=== PATIENT | female | born 1955 | race Caucasian/White ===

== ENCOUNTER 2016-12-25 08:57 | Emergency (ER) | payer BC, MEDICARE ==
[2016-12-25] MEDS ORDERED: ONDANSETRON 4 MG TAB.RAPDIS PO ONE (09:13)
[2016-12-25] MEDS ORDERED: OXYCODONE-ACETAMINOPHEN 5-325 MG TABLET PO ONE (09:13)
[2016-12-25] MEDS ORDERED: IBUPROFEN 600 MG TABLET PO ONE (09:13)
--- NOTE | 2016-12-25 09:18 | ER Document Report ---
ED Medical Screen (RME) - General Chief Complaint: Possible Kidney Stone Stated Complaint: LOWER BACK PAIN Time Seen by Provider: 12/25/16 09:13 Notes: The patient is a 61-year-old female, past medical history kidney stones, Lyme disease, presents with 2 days of bilateral flank pain, worse on the right side now radiating into her groin, nausea and vomiting. She says this feels similar to her prior kidney stones. She required ureteral stents in the past. Patient also with fever on arrival to triage. Denies hematuria, dysuria, numbness, tingling, hematemesis, diarrhea or constipation. PE: actively vomiting in triage, right CVA tenderness, RRR, CTAB, abdomen soft and non-tender I have greeted and performed a rapid initial assessment of this patient. A comprehensive ED assessment and evaluation of the patient, analysis of test results and completion of the medical decision making process will be conducted by additional ED providers. TRAVEL OUTSIDE OF THE [place] IN LAST 30 DAYS: No - Related Data Allergies/Adverse Reactions: Sulfa (Sulfonamide Antibiotics) Allergy (Intermediate, Verified 12/25/16 09:10) Hives Past Medical History - Past Medical History Cardiac Medical History: Denies: Hx Coronary Artery Disease, Hx Heart Attack, Hx Hypertension Pulmonary Medical History: Denies: Hx Asthma, Hx Bronchitis, Hx COPD, Hx Pneumonia Neurological Medical History: Denies: Hx Cerebrovascular Accident, Hx Seizures Renal/ Medical History: Denies: Hx Peritoneal Dialysis Musculoskeltal Medical History: Denies Hx Arthritis - Immunizations Hx Diphtheria, Pertussis, Tetanus Vaccination: Yes Physical Exam - Vital signs Vitals: Temp Pulse Resp BP Pulse Ox 102 F H 80 20 138/120 H 99 12/25/16 09:07 12/25/16 09:07 12/25/16 09:07 12/25/16 09:07 12/25/16 09:07 Course - Vital Signs Vital signs: Temp Pulse Resp BP Pulse Ox 102 F H 80 20 138/120 H 99 12/25/16 09:07 12/25/16 09:07 12/25/16 09:07 12/25/16 09:07 12/25/16 09:07
[2016-12-25 09:37] LABS: ABSOLUTE LYMPHOCYTES (AUTO) 0.6 10^3/uL (0.5-4.7); ABSOLUTE MONOCYTES (AUTO) 0.2 10^3/uL (0.1-1.4); ABSOLUTE NEUT (AUTO) 9.8 10^3/uL (1.7-8.2); BASOPHILS % (AUTO) 0.4 % (0-2); EOSINOPHILS % (AUTO) 0.3 % (0-6); HEMATOCRIT 30.3 % (36.0-47.0); HEMOGLOBIN 10.1 g/dL (12.0-15.5); LYMPHOCYTES % (AUTO) 5.5 % (13-45); MEAN CORPUSCULAR HEMOGLOBIN 29.4 pg (27.0-33.4); MEAN CORPUSCULAR HGB CONC 33.2 g/dL (32.0-36.0); MEAN CORPUSCULAR VOLUME 89 fl (80-97); MONOCYTES % (AUTO) 1.6 % (3-13); RED BLOOD COUNT 3.42 10^6/uL (3.72-5.28); RED CELL DISTRIBUTION WIDTH 12.9 % (11.5-14.0); SEGMENTED NEUTROPHILS % (AUTO) 92.2 % (42-78); WHITE BLOOD COUNT 10.7 10^3/uL (4.0-10.5)
[2016-12-25 09:59] LABS: ALANINE AMINOTRANSFERASE 28 U/L (9-52); ALKALINE PHOSPHATASE 83 U/L (38-126); ANION GAP 16 (5-19); ASPARTATE AMINO TRANSFERASE 27 U/L (14-36); BILIRUBIN,DIRECT 0.6 mg/dL (0.0-0.4); BILIRUBIN,TOTAL 0.8 mg/dL (0.2-1.3); BLOOD UREA NITROGEN 14 mg/dL (7-20); CALCIUM 9.3 mg/dL (8.4-10.2); CARBON DIOXIDE 22 mmol/L (22-30); CHLORIDE 102 mmol/L (98-107); CREATININE RESULT 1.31 mg/dL (0.52-1.25); GLUCOSE 141 mg/dL (75-110); LIPASE 17.8 U/L (23-300); POTASSIUM 3.9 mmol/L (3.6-5.0); SODIUM 139.6 mmol/L (137-145); TOTAL PROTEIN 7.1 g/dL (6.3-8.2)
[2016-12-25] MEDS ORDERED: NORMAL SALINE 1000 ML 1,000 ML IV ONE (10:04)
[2016-12-25] MEDS ORDERED: VANCOMYCIN HCL INJ 1000 MG VIAL IV ONE (10:04)
[2016-12-25] MEDS ORDERED: LEVOFLOXACIN 750 MG TABLET PO ONE (10:04)
--- NOTE | 2016-12-25 10:22 | RADIOLOGY REPORT (SQ) ---
EXAM DESCRIPTION: CT ABD/PELVIS NO ORAL OR IV COMPLETED DATE/TIME: 12/25/2016 9:43 am REASON FOR STUDY: right flank pain COMPARISON: None. TECHNIQUE: CT scan of the abdomen and pelvis performed without intravenous or oral contrast. Images reviewed with lung, soft tissue, and bone windows. Reconstructed coronal and sagittal MPR images revi ewed. All images stored on PACS. All CT scanners at this facility use dose modulation, iterative reconstruction, and/or weight based d osing when appropriate to reduce radiation dose to as low as reasonably achievable (ALARA). [facility]: Dose Right [facility]: CareDose [facility]: Dose Right [facility]: Teradose 4D [facility]: [employer] RADIATION DOSE: Up-to-date CT equipment and radiation dose reduction techniques were employed. CTDIv ol: 7.4 mGy. DLP: 392 mGy-cm.mGy. LIMITATIONS: None. FINDINGS: LOWER CHEST: No significant findings. No nodules or infiltrates. NON-CONTRASTED LIVER, SPLEEN, ADRENALS: The liver and spleen are normal. The adrenal glands are not well seen. PANCREAS: No masses. No peripancreatic inflammatory changes. GALLBLADDER: No identified stones by CT criteria. No inflammatory changes to suggest cholecystitis. RIGHT KIDNEY AND URETER: No suspicious masses. Assessment limited by lack of IV contrast. There is an 8 mm lower calyceal calculus. There is right-sided hydronephrosis secondary to the presence of a 13 x 10 mm stone at the UPJ. LEFT KIDNEY AND URETER: The left kidney smaller than the right. There is no mass. Staghorn calculu s is present in the lower calices. No hydronephrosis or hydroureter. AORTA AND RETROPERITONEUM: No aneurysm. No retroperitoneal masses or adenopathy. BOWEL AND PERITONEAL CAVITY: Considerable stool is seen in the left colon. APPENDIX: Not identified. PELVIS, BLADDER, AND ABDOMINAL WALL:The urinary bladder is normal. There is no adnexal mass or fluid collection. BONES: No significant findings. OTHER: No other significant finding. IMPRESSION: 1. There is right-sided hydronephrosis secondary to a 13 x 10 mm stone at the UPJ. 2. The left kidney is smaller than the right and there is a staghorn calculus in the lower calices. 3. There is considerable stool in the left colon suggesting constipation. TECHNICAL DOCUMENTATION: JOB ID: [id number] Quality ID # [id number]: Final reports with documentation of one or more dose reduction techniques (e.g., Au tomated exposure control, adjustment of the mA and/or kV according to patient size, use of iterative reconstruction technique) 2010 [employer]- All Rights Reserved
--- NOTE | 2016-12-25 10:30 | ER Document Report ---
ED General - General Chief Complaint: Possible Kidney Stone Stated Complaint: LOWER BACK PAIN Time Seen by Provider: 12/25/16 09:13 Notes: 61-year-old female with a history of kidney stones with intervention several years ago presents with several days of right flank pain worsening severe now associated with fever 24 hours and vomiting. Denies diarrhea. Her urologist is not practicing anymore. TRAVEL OUTSIDE OF THE [place] IN LAST 30 DAYS: No - Related Data Allergies/Adverse Reactions: Sulfa (Sulfonamide Antibiotics) Allergy (Intermediate, Verified 12/25/16 09:10) Hives Past Medical History - Social History Smoking Status: Unknown if Ever Smoked Family History: None Patient has suicidal ideation: No Patient has homicidal ideation: No - Past Medical History Cardiac Medical History: Denies: Hx Coronary Artery Disease, Hx Heart Attack, Hx Hypertension Pulmonary Medical History: Denies: Hx Asthma, Hx Bronchitis, Hx COPD, Hx Pneumonia Neurological Medical History: Denies: Hx Cerebrovascular Accident, Hx Seizures Renal/ Medical History: Denies: Hx Peritoneal Dialysis Musculoskeltal Medical History: Denies Hx Arthritis - Immunizations Hx Diphtheria, Pertussis, Tetanus Vaccination: Yes Review of Systems - Review of Systems Notes: GEN: D there are ENT: Denies sore throat, nasal discharge, ear pain EYES: Denies blurry vision, eye pain, discharge CV: Denies chest pain, palpitations, edema RESP: Denies cough, shortness of breath, wheezing GI: Flank pain vomiting MSK: Denies joint pain/swelling, edema, SKIN: Denies rash, skin lesions LYMPH: Denies swollen glands/lymph nodes NEURO: Denies headache, focal weakness or numbness, dizziness PSYCH: Denies depression, suicidal or homicidal ideation Physical Exam - Vital signs Vitals: Temp Pulse Resp BP Pulse Ox 102 F H 80 20 138/120 H 99 12/25/16 09:07 12/25/16 09:07 12/25/16 09:07 12/25/16 09:07 12/25/16 09:07 - Notes Notes: General: No acute distress, well-nourished. Warm to the touch. Head: Atraumatic, normocephalic ENT: Mouth normal, oropharynx moist, no exudates or tonsillar enlargement Eyes: Conjunctiva normal, pupils equal, lids normal Neck: No JVD, supple, no guarding CVS: Cardiac regular rhythm, no murmurs Resp: No resp distress, equal and normal breath sounds bilaterally GI: Nondistended, soft, no tenderness to palpation, no rebound or guarding Ext: No deformities, no edema, normal range of motion in upper and lower ext : Right-sided greater than left-sided costovertebral angle tenderness Skin: No rash, warm Lymphatic: No lymphadeopathy noted Neuro: Awake, alert. Face symmetric. Course - Re-evaluation Re-evalutation: 12/25/16 10:34 Spoke with transfer center environment at 10:33 AM. Requested urology. Patient 's lab results show a leukocytosis and her CT is being read as an obstructing right sided ureteropelvic junction stone with hydronephrosis. This combined with her fever is worrisome for an impacted stone, with pyelonephritis requiring urgent urological intervention. Antibiotics ordered. Will transfer. 12/25/16 11:[address] Cuevas from urology at [facility] who agrees patient should be transferred for urologic intervention but states that they do not accept septic patients on their service and we should try hospitalist first. Requested this via the transfer center. 12/25/16 11:48 S, vitals have improved. Patient is accepted by Dr. Joshua Ott at [facility] Previously spoke with Dr. Cuevas who will arrange cystoscopy. - Vital Signs Vital signs: Temp Pulse Resp BP Pulse Ox 102.0 F H 80 18 115/92 H 95 12/25/16 11:10 12/25/16 09:07 12/25/16 11:07 12/25/16 11:07 12/25/16 11:07 - Laboratory Result Diagrams: 12/25/16 09:23 12/25/16 09:23 Laboratory results interpreted by me: 12/25/16 12/25/16 12/25/16 09:23 09:23 10:25 WBC 10.7 H RBC 3.42 L Hgb 10.1 L Hct 30.3 L Seg Neutrophils % 92.2 H Lymphocytes % 5.5 L Monocytes % 1.6 L Absolute Neutrophils 9.8 H Creatinine 1.31 H Est GFR ( Amer) 50 L Est GFR (Non-Af Amer) 41 L Glucose 141 H Lactic Acid 2.3 H Direct Bilirubin 0.6 H Lipase 17.8 L Urine Blood Urine Nitrite Ur Leukocyte Esterase 12/25/16 11:02 WBC RBC Hgb Hct Seg Neutrophils % Lymphocytes % Monocytes % Absolute Neutrophils Creatinine Est GFR ( Amer) Est GFR (Non-Af Amer) Glucose Lactic Acid Direct Bilirubin Lipase Urine Blood SMALL H Urine Nitrite POSITIVE H Ur Leukocyte Esterase MODERATE H Critical Care Note - Critical Care Note Total time excluding time spent on procedures (mins): 35 Comments: The above patient is critically ill. Not including procedures, but including direct re-evaluations, speaking with patient and/or consultants, interpreting results, and documenting, I spent the total amount of minute listed listed above on critical care time
[2016-12-25] MEDS ORDERED: NORMAL SALINE 1000 ML 1,000 ML IV PRN (11:06)
[2016-12-25] MEDS ORDERED: ACETAMINOPHEN 325 MG TABLET PO ONE (11:15)
[2016-12-25 11:29] LABS: APPEARANCE,URINE SLIGHTLY-CLOUDY; BILIRUBIN,URINE NEGATIVE (NEGATIVE); GLUCOSE, URINE NEGATIVE (NEGATIVE); KETONES,URINE NEGATIVE (NEGATIVE); LEUKOCYTE ESTERASE,URINE MODERATE (NEGATIVE); NITRITE,URINE POSITIVE (NEGATIVE); PROTEIN,URINE NEGATIVE (NEGATIVE); URINE SPECIFIC GRAVITY 1.008; UROBILINOGEN,URINE NEGATIVE mg/dL (<2.0)
[2016-12-25] MEDS ORDERED: FENTANYL CITRATE INJ/PF 100 MCG/2 ML AMPUL IV ONE (13:14)
[2016-12-25 14:30] VITALS: BP 111/73
== END 2016-12-25 15:07 | disposition short-term general hospital (02) ==
LOC: ER 08:57
DX: N10 Acute pyelonephritis (principal); M54.5 Low back pain; R50.9 Fever, unspecified
CPT/HCPCS: 99291; 96361; 96375; 96365; 36415; 87040; 87086; 83605; 83690; 85025; 87077; 87088; 80053; 81001; 87186; 74176; A9270 ×5; J3010; J7030; J3370; S0119

== ENCOUNTER 2017-09-16 08:27 | Day surgery (SDC) | payer MEDICARE, BC ==
[~2017-09-16 08:27] MED LIST: CHONDR SU A NA/HYALUR INTRAOC KIT (SURGICARE) ONE; EPINEPHRINE INJ/PF 1 MG/1 ML AMPULE ONE; KETOROLAC TROMETHAMINE 0.45% 4 DROP/0.4 ML DROPERETTE OS PRN; LIDOCAINE 1% INJ-PF (10 MG/ML) 30 ML SDV ONE
[2017-09-16] MEDS ORDERED: MIDAZOLAM 2 MG/2 ML INJ ONE ×2 (09:14→10:36)
[2017-09-16] MEDS: TETRACAINE HCL 0.5% OPH SOLN 2 ML OS PRN ×3 (09:37→10:11)
[2017-09-16] MEDS: TROPICAMIDE 1% OPH SOLN 3 ML OS PRN ×3 (09:38→10:00)
[2017-09-16] MEDS: CYCLOPENTOLATE 0.2%/PHENYLEPHRINE 1% OPH SOLN 2 ML OS PRN ×3 (09:38→10:00)
[2017-09-16] MEDS: BESIFLOXACIN HCL 0.6% OPH SUSP 5 ML BOTTLE OS PRN ×3 (09:38→10:31)
--- NOTE | 2017-09-16 13:44 | [facility] OPERATIVE REPORT E ---
[facility] Operative Report NAME: ADELAIDA SIMON AGE: 62Y DATE OF SURGERY: 09/16/2017 ROOM: PREOPERATIVE DIAGNOSIS: CATARACT, LEFT EYE. POSTOPERATIVE DIAGNOSIS: CATARACT, LEFT EYE. OPERATION: Cataract extraction with intraocular lens implant of the left eye. SURGEON: KATHY LINDER M.D. ANESTHESIA: Topical. PROCEDURE: After obtaining appropriate consent, the patient's left eye was prepped and draped in sterile fashion as well as the surgeon in a sterile manner and cataract surgery was started. First a paracentesis blade was used to make a small side-port incision. Viscoelastic was used to inflate the anterior chamber. Next a 2.4 mm incision was made with the paracentesis blade. A continuous capsulorrhexis incision was made using a cystotome and Utrata forceps. Following this hydrodissection was carried out to make the lens fully loose and mobile and it was rotated 90 degrees. Following this, a kstwab-hla-lgenhjb technique was used to phacoemulsify the lens with a CDE of 7.07. The remaining cortex was removed with irrigation/aspiration. Provisc was instilled into the capsular bag to inflate the bag. A SN60WF, 13.5 diopter lens was placed. The remaining viscoelastic material was removed with irrigation/aspiration. Following this, a 10-0 nylon suture was used to close the incision and it was found to be watertight. Vigamox was instilled in the eye and a protective shield was placed over the eye. The patient returned to the postoperative recovery in stable condition. DICTATING PHYSICIAN: KATHY LINDER M.D. [id number] PHY#: [id number] ID: [id number] JOB#: [id number] ACCT: [id number] cc:KATHY LINDER M.D. >
--- NOTE | 2017-09-16 13:44 | [facility] DISCHARGE SUMMARY E ---
[facility] Discharge Summary NAME: ADELAIDA SIMON AGE: 62Y ADMITTED: 09/16/2017 DISCHARGED: 09/16/2017 DIAGNOSIS: CATARACT, LEFT EYE. SUMMARY: This is a 62-year-old female who underwent cataract extraction of the left eye. She underwent surgery because she was having trouble seeing words on the television. She should be on a regular diet, no bending at her waist, and no heavy lifting. She should use her Besivance, Ilevro and Durezol at 3 p.m. and 8 p.m. and sleep with a rigid shield. I will see her for her 1 day postoperative tomorrow. DICTATING PHYSICIAN: KATHY LINDER M.D. [id number] PHY#: [id number] ID: [id number] JOB#: [id number] ACCT: [id number] cc:KATHY LINDER M.D. >
== END 2017-09-16 11:30 | disposition home or self-care (01) ==
LOC: SC 08:27
PROVIDERS: ATTEND Internal Medicine
PROC: 08RK3JZ Replacement of Left Lens with Synthetic Substitute, Percutaneous Approach (ICD-10-PCS; principal; 2017-09-16 10:00)
DX: H25.13 Age-related nuclear cataract, bilateral (principal); D64.9 Anemia, unspecified; F17.290 Nicotine dependence, other tobacco product, uncomplicated; Z88.2 Allergy status to sulfonamides
CPT/HCPCS: 66984; V2632; J2250; J3490 ×2; A9270; J0171; 142

== ENCOUNTER → 2020-01-25 | Outpatient (CLI) | payer MEDICARE, BC ==
--- NOTE | 2020-01-26 08:39 | EKG REPORT ---
SEVERITY:- BORDERLINE ECG - SINUS RHYTHM BORDERLINE PROLONGED QT INTERVAL : Confirmed by: Vee Figueroa MD 26-Jan-2020 08:38:44
== END ==
LOC: OD 11:30
PROVIDERS: ATTEND Pain Medicine Interventional Pain Medicine
DX: G89.4 Chronic pain syndrome (principal)
CPT/HCPCS: 36415; G0480; 80358; 93005; 93010

== ENCOUNTER → 2020-02-22 | Outpatient (CLI) | payer MEDICARE, BC | LOC: OD 12:25 | PROVIDERS: ATTEND Pain Medicine Interventional Pain Medicine | DX: G89.4 Chronic pain syndrome (principal) | CPT/HCPCS: 36415; G0480; 80358 ==

== ENCOUNTER 2020-03-22 20:41 | Inpatient (IN) | payer MEDICARE, BC ==
[2020-03-22 21:10] LABS: ABSOLUTE BASOPHILS # (AUTO) 0.1 10^3/uL (0.0-0.2); ABSOLUTE EOSINOPHILS # (AUTO) 0.3 10^3/uL (0.0-0.6); ABSOLUTE LYMPHOCYTES (AUTO) 1.3 10^3/uL (0.5-4.7); ABSOLUTE MONOCYTES (AUTO) 1.6 10^3/uL (0.1-1.4); ABSOLUTE NEUT (AUTO) 14.5 10^3/uL (1.7-8.2); BASOPHILS % (AUTO) 0.5 % (0-2); EOSINOPHILS % (AUTO) 1.5 % (0-6); HEMATOCRIT 31.8 % (36.0-47.0); HEMOGLOBIN 10.7 g/dL (12.0-15.5); LYMPHOCYTES % (AUTO) 7.1 % (13-45); MEAN CORPUSCULAR HEMOGLOBIN 28.5 pg (27.0-33.4); MEAN CORPUSCULAR HGB CONC 33.7 g/dL (32.0-36.0); MEAN CORPUSCULAR VOLUME 85 fl (80-97); MONOCYTES % (AUTO) 9.2 % (3-13); PLATELET COUNT 465 10^3/uL (150-450); RED BLOOD COUNT 3.76 10^6/uL (3.72-5.28); RED CELL DISTRIBUTION WIDTH 13.4 % (11.5-14.0); SEGMENTED NEUTROPHILS % (AUTO) 81.7 % (42-78); TOTAL CELLS COUNTED % (AUTO) 100 %; WHITE BLOOD COUNT 17.8 10^3/uL (4.0-10.5)
[2020-03-22 21:22] LABS: ALBUMIN 3.7 g/dL (3.5-5.0); ALKALINE PHOSPHATASE 201 U/L (38-126); ANION GAP 11 (5-19); ASPARTATE AMINO TRANSFERASE 36 U/L (14-36); BILIRUBIN,DIRECT 0.5 mg/dL (0.0-0.4); BILIRUBIN,TOTAL 0.7 mg/dL (0.2-1.3); BLOOD UREA NITROGEN 14 mg/dL (7-20); CALCIUM 9.2 mg/dL (8.4-10.2); CARBON DIOXIDE 26 mmol/L (22-30); CHLORIDE 100 mmol/L (98-107); CREATINE KINASE 158 U/L (30-135); GLUCOSE 117 mg/dL (75-110); POTASSIUM 3.7 mmol/L (3.6-5.0); TOTAL PROTEIN 6.9 g/dL (6.3-8.2)
[2020-03-22 21:34] LABS: CREATINE KINASE MB 5.91 ng/mL (<4.55)
[2020-03-22 21:36] LABS: TROPONIN I 0.049 ng/mL
--- NOTE | 2020-03-22 21:43 | ER Document Report ---
ED Respiratory Problem - General Chief Complaint: Shortness Of Breath Stated Complaint: DIFFICULTY BREATHING Time Seen by Provider: 03/22/20 21:06 Notes: Patient is a 65-year-old female that comes emergency department for chief complaint of difficulty breathing. She comes by EMS, she was found to have an initial oxygen saturation of 91% on room air, she was given an albuterol nebulizer. She states that she has had increased difficulty breathing for the past 2 days or so although she does admit to some baseline difficulty breathing normally. She states she has dyspnea on exertion at baseline as well but this is significantly worsened as well. She denies specific chest pain, she does report a worsening cough, she denies fever, she denies nausea, vomiting, headache, lower extremity swelling. She denies obvious exposure to COVID-19 or recent testing. She smokes, she takes a hormone supplement (estrogen), she has a history of rheumatoid arthritis and is on methadone for this, she has a history of depression. She denies COPD diagnosis, CAD, TX, CHF, and she is not on home oxygen. TRAVEL OUTSIDE OF THE [place] IN LAST 30 DAYS: No - Related Data Allergies/Adverse Reactions: Sulfa (Sulfonamide Antibiotics) Allergy (Intermediate, Verified 09/15/17 09:17) Hives Home Medications: Methadone, Estrogen Past Medical History - General Information source: Patient - Social History Smoking Status: Current Every Day Smoker Frequency of alcohol use: None Drug Abuse: None Lives with: Family Family History: None Patient has homicidal ideation: No - Past Medical History Cardiac Medical History: Denies: Hx Coronary Artery Disease, Hx Heart Attack, Hx Hypertension Pulmonary Medical History: Reports: Hx COPD Denies: Hx Asthma, Hx Bronchitis, Hx Pneumonia Neurological Medical History: Denies: Hx Cerebrovascular Accident, Hx Seizures Renal/ Medical History: Reports: Hx Kidney Stones. Denies: Hx Peritoneal Dialysis GI Medical History: Denies: Hx Hepatitis, Hx Hiatal Hernia, Hx Ulcer Musculoskeletal Medical History: Reports Hx Arthritis - rheumatoid Psychiatric Medical History: Reports: Hx Depression Infectious Medical History: Denies: Hx Hepatitis Past Surgical History: Reports: Hx Hysterectomy. Denies: Hx Mastectomy, Hx Open Heart Surgery, Hx Pacemaker - Immunizations Hx Diphtheria, Pertussis, Tetanus Vaccination: Yes Review of Systems - Review of Systems Constitutional: See HPI EENT: No symptoms reported Cardiovascular: See HPI Respiratory: See HPI Gastrointestinal: No symptoms reported Genitourinary: No symptoms reported Female Genitourinary: No symptoms reported Musculoskeletal: No symptoms reported Skin: No symptoms reported Hematologic/Lymphatic: No symptoms reported Neurological/Psychological: No symptoms reported Physical Exam - Vital signs Vitals: Temp Pulse Resp BP Pulse Ox 98.8 F 99 20 138/81 H 96 03/22/20 20:41 03/22/20 20:41 03/22/20 20:41 03/22/20 20:41 03/22/20 20:41 - Notes Notes: GENERAL: Alert but slightly pale and slightly ill-appearing HEAD: Normocephalic, atraumatic. EYES: Pupils equal, round, and reactive to light. Extraocular movements intact. ENT: Oral mucosa moist, tongue midline. Oropharynx unremarkable. Airway patent. NECK: Full range of motion. Supple. Trachea midline. No lymphadenopathy. LUNGS: Decreased breath sounds bilaterally but no tachypnea, labored breathing, wheezes, rales, rhonchi were noted HEART: Regular rate and rhythm. No murmur ABDOMEN: Soft, non-tender. Non-distended. EXTREMITIES: Moves all 4 extremities spontaneously. No edema, normal radial and dorsalis pedis pulses bilaterally. No cyanosis. BACK: no cervical, thoracic, lumbar midline tenderness. No saddle anesthesia, normal distal neurovascular exam. Moves all extremities in full range of motion. NEUROLOGICAL: Alert and oriented x3. Normal speech. Cranial nerves II through XII grossly intact. Strength 5/5 in all extremities. PSYCH: Normal affect, normal mood. SKIN: Slightly pale, otherwise unremarkable Course - Re-evaluation Re-evalutation: Patient is comfortable sitting on the bed on 3 L nasal cannula but with any effort she becomes tachypneic. At rest though she speaks in full sentences, she does not appear to be in distress. Lung sounds are decreased but clear on my evaluation. Physical examination otherwise unremarkable. CBC shows leukocytosis with elevation of neutrophils but no bandemia. Chemistry unremarkable. Troponin is indeterminate, BNP is greater than 2000. Chest x-ray indicates bilateral pneumonia. Based on her evaluation I have a high suspicion of pneumonia, high suspicion of COVID-19, and some suspicion of pulmonary embolism. I discussed with patient. I recommended antibiotics, dexamethasone, and admission to the hospital for further evaluation and management. These were ordered. Doxycycline was substituted for azithromycin because of prolonged QT interval. However patient initially stated she wanted to go home, she would pr efer to just be discharged now, she states that she needs things taken care of at home and she wants to check on her . I urged patient to stay, I discussed how she may become critically ill and she needs to be hospitalized. Patient asked to get up and go to the bathroom, we ambulated her with pulse ox, she desaturated to 87% and started gasping for air rapidly. Patient was placed back on the bed and placed back on oxygen. After this she calmed down. After this event patient was then agreeable with admission. Discussed with Dr. Joshi patient excepted to telemetry full admission. Updated family. - Vital Signs Vital signs: Temp Pulse Resp BP Pulse Ox 98.7 F 93 20 147/64 H 100 03/23/20 03:45 03/23/20 03:45 03/23/20 03:45 03/23/20 03:45 03/23/20 03:45 - Laboratory Result Diagrams: 03/22/20 20:50 03/22/20 20:50 Laboratory results interpreted by me: 03/22/20 03/22/20 03/22/20 20:50 20:50 20:50 WBC 17.8 H Hgb 10.7 L Hct 31.8 L Plt Count 465 H Lymph % (Auto) 7.1 L Absolute Neuts (auto) 14.5 H Absolute Monos (auto) 1.6 H Seg Neutrophils % 81.7 H Sodium 136.7 L Glucose 117 H Direct Bilirubin 0.5 H Alkaline Phosphatase 201 H Creatine Kinase 158 H CK-MB (CK-2) 5.91 H NT-Pro-B Natriuret Pep 2080 H - EKG Interpretation by Me Additional EKG results interpreted by me: EKG shows sinus rhythm at a rate of 94, prolonged QT interval at 526, normal axis, no T wave inversions or ST segment changes in consecutive leads Discharge - Discharge Clinical Impression: Cough, Shortness of breath Pneumonia Qualifiers: Pneumonia type: due to unspecified organism Laterality: bilateral Lung location: unspecified part of lung Qualified Code(s): J18.9 - Pneumonia, unspecified organism Condition: Stable Disposition: ADMITTED INPATIENT Admitting Provider: Madelyn (Hospitalist) Unit Admitted: Telemetry
--- NOTE | 2020-03-22 22:37 | RADIOLOGY REPORT (SQ) ---
EXAM DESCRIPTION: XR CHEST 1 VIEW COMPLETED DATE/TME: 03/22/2020 21:03 CLINICAL HISTORY: 65 years, Female, cough, shortness of breath COMPARISON: None. NUMBER OF VIEWS: One TECHNIQUE: Single frontal view of the chest was obtained LIMITATIONS: None FINDINGS: Cardiac and mediastinal contours are normal. Patchy multifocal bilateral airspace disease is noted, especially about both lung apices. No pneumothorax or large pleural effusion. IMPRESSION: Patchy multifocal bilateral airspace disease, especially about both lung apices, suspicious for multifocal pneumonia/viral pneumonitis. Short interval follow-up to clearing is recommended to exclude a more sinister process. copyright 2010 [employer]- All Rights Reserved
[2020-03-22] MEDS ORDERED: CEFTRIAXONE 1 GM/D5W RTU 1 GM/50 ML RTUPB IV ONE (22:45)
[2020-03-22] MEDS ORDERED: AZITHROMYCIN INJ 500 MG VIAL IV ONE (22:45)
[2020-03-22] MEDS ORDERED: DEXAMETHASONE SOD PHOS INJ 10 MG/1 ML VIAL IV ONE (23:07)
[2020-03-22] MEDS ORDERED: DOXYCYCLINE HYCLATE INJ 100 MG VIAL IV ONE (23:42)
[2020-03-23 00:02] LABS: VENOUS BLOOD PCO2 41.1 mmHg (35-63); VENOUS BLOOD PH 7.38 (7.30-7.42)
[2020-03-23] MEDS ORDERED: ACETAMINOPHEN 325 MG TABLET PO PRN (02:26)
[2020-03-23] MEDS ORDERED: OXYCODONE-ACETAMINOPHEN 5-325 MG TABLET PO PRN (02:26)
[2020-03-23] MEDS ORDERED: ONDANSETRON HCL INJ/PF 4 MG/2 ML SDV IV PRN ×2 (02:26→09:00)
[2020-03-23] MEDS ORDERED: IPRATROPIUM/ALBUTEROL 0.5-2.5 MG/3 ML AMPUL NEB PRN (02:26)
[2020-03-23] MEDS ORDERED: TEMAZEPAM 7.5 MG CAPSULE PO PRN (02:26)
[2020-03-23] MEDS ORDERED: MAGNESIUM HYDROXIDE SUSP 30 ML UDCUP PO PRN (02:26)
[2020-03-23] MEDS ORDERED: PROMETHAZINE HCL INJ 25 MG/1 ML VIAL IV PRN ×2 (02:26→09:00)
[2020-03-23] MEDS ORDERED: MORPHINE SULFATE 10 MG/ML INJ IV PRN (02:30)
[2020-03-23] MEDS ORDERED: MORPHINE SULFATE 10 MG/ML INJ ONE (02:32)
[2020-03-23] MEDS ORDERED: LORAZEPAM INJ 2 MG/1 ML VIAL IV PRN (02:33)
[2020-03-23] MEDS ORDERED: METOPROLOL TARTRATE PF/INJ 5 MG/5 ML SDV IV PRN (02:33)
[2020-03-23] MEDS ORDERED: HYDRALAZINE HCL INJ/PF 20 MG/1 ML SDV IV PRN (02:33)
[2020-03-23] MEDS ORDERED: ENOXAPARIN SODIUM INJ 80 MG/0.8 ML DISP.SYRIN SUBCUT ONE (02:45)
[2020-03-23] MEDS ORDERED: ASPIRIN 325 MG TABLET PO ONE (02:50)
[2020-03-23] MEDS ORDERED: MORPHINE SULFATE 10 MG/ML INJ IV ONE (03:00)
[2020-03-23] MEDS: NORMAL SALINE 1000 ML 1,000 ML IV PRN ×2 (03:10→20:00)
[2020-03-23 03:12] LABS: ARTERIAL BLOOD BASE EXCESS -1.3 mmol/L; ARTERIAL BLOOD HCO3 24.1 mmol/L (20-24); ARTERIAL BLOOD O2 SATURATION 95.5 % (94-98); ARTERIAL BLOOD PCO2 43.1 mmHg (35-45); ARTERIAL BLOOD PH 7.37 (7.35-7.45); ARTERIAL BLOOD PO2 80.2 mmHg (80-100); ARTERIAL BLOOD TOTAL CO2 25.4 mmol/L (21-25)
[2020-03-23 03:15] LABS: ARTERIAL BLOOD FIO2 36%
[2020-03-23 03:36] LABS: PROTHROMBIN TIME 18.3 SEC (11.4-15.4)
[2020-03-23 03:39] LABS: D-DIMER 2.41 ug/mL (0.00-0.50)
[2020-03-23 03:48] LABS: CHOLESTEROL 316.06 mg/dL (0-200); TRIGLYCERIDES 97 mg/dL (<150)
[2020-03-23 03:56] LABS: DIRECT LDL 252 mg/dL (<100)
[2020-03-23 04:11] LABS: C-REACTIVE PROTEIN 365.9 mg/L (<10.0)
[2020-03-23] MEDS: DEXAMETHASONE 4 MG TABLET PO SCH ×3 (05:06→21:40)
--- NOTE | 2020-03-23 05:33 | PDOC H&P ---
History of Present Illness Admission Date/PCP: 03/23/20 00:01 GONZÁLEZ CALLE MD History of Present Illness: ADELAIDA SIMON is a 65 year old female past medical history of non-oxygen depen dent COPD, nephrolithiasis, rheumatoid arthritis, presenting to ED complaining of worsening shortness of breath. Patient has been having difficulty breathing for the last 2 days, patient has chronic shortness of breath at baseline but does not use any oxygen, does have history of COPD, but for the last 3 days shortness of breath has been worsening associated with nonproductive cough cough, denies any fever, chills, loss of smell, diarrhea, abdominal pain, any exposure to anybody with COVID-19. In ED she was noted to be significantly hypoxic, mildly elevated troponins, elevated inflammatory markers, and chest x- ray positive for patchy multifocal bilateral airspace disease suspicion for mult ifocal pneumonia or viral pneumonitis. Patient was started on broad-spectrum empiric IV antibiotics and hospitalist consulted for admission. Past Medical History Cardiac Medical History: Denies: Coronary Artery Disease, Myocardial Infarction, Hypertension Pulmonary Medical History: Denies: Asthma, Bronchitis, Chronic Obstructive Pulmonary Disease (COPD), Pneumonia Neurological Medical History: Denies: Seizures GI Medical History: Denies: Hepatitis, Hiatal Hernia Musculoskeltal Medical History: Reports: Arthritis - rheumatoid Psychiatric Medical History: Reports: Depression Hematology: Denies: Anemia, Sickle Cell Disease Past Surgical History Past Surgical History: Reports: Hysterectomy Denies: Amputation, Mastectomy, Pacemaker Social History Smoking Status: Former Smoker Electronic Cigarette use?: Yes Family History Family History: None Parental Family History Reviewed: Yes Children Family History Reviewed: Yes Sibling(s) Family History Reviewed.: Yes Medication/Allergy Home Medications: Progesterone, Micronized [Progesterone] 100 mg PO QHS 12/22/15 Cholecalciferol (Vitamin D3) [Vitamin D3] 600 unit PO DAILY 09/15/17 Cyanocobalamin (Vitamin B-12) [Vitamin B12] 500 mcg PO DAILY 09/15/17 Doxepin HCl [Silenor] 6 mg PO QHS 09/15/17 Estradiol 1 mg PO DAILY 09/15/17 Ferrous Sulfate 325 mg PO DAILY 09/15/17 Gabapentin Enacarbil [Horizant] 600 mg PO BID 09/15/17 Multivitamin [Chewable-Ginger] 1 each PO DAILY 09/15/17 Oxycodone HCl 5 mg PO BIDP PRN 09/15/17 Thiamine HCl [Vitamin B-1] 250 mg PO DAILY 09/15/17 Vitamin C/Biotin [Ghea-Aban-Lzlgs Gummies] 1 each PO DAILY 09/15/17 Besifloxacin HCl [Besivance Drops] 1 drop OP TID 09/16/17 Difluprednate [Durezol] 1 drop OP ASDIR PRN 09/16/17 Nepafenac [Ilevro] 1 drop OP ASDIR PRN 09/16/17 Buprenorphine [Butrans] 15 mg TD .WEEKLY 10/07/17 Allergies/Adverse Reactions: Sulfa (Sulfonamide Antibiotics) Allergy (Intermediate, Verified 09/15/17 09:17) Hives Review of Systems Review of Systems: as per hpi Physical Exam Vital Signs: Temp Pulse Resp BP Pulse Ox 98.7 F 93 20 147/64 H 100 03/23/20 03:45 03/23/20 03:45 03/23/20 03:45 03/23/20 03:45 03/23/20 03:45 Intake & Output 03/21/20 03/22/20 03/23/20 06:59 06:59 06:59 Intake Total 50 Balance 50 Weight 69.2 kg General appearance: PRESENT: severe distress Head exam: PRESENT: atraumatic, normocephalic Respiratory exam: PRESENT: accessory muscle use, clear to auscultation kristin, tachypnea. ABSENT: rales, rhonchi, wheezes Cardiovascular exam: PRESENT: RRR, tachycardia. ABSENT: diastolic murmur, rubs, systolic murmur GI/Abdominal exam: PRESENT: normal bowel sounds, soft. ABSENT: distended, gu arding, mass, organolmegaly, rebound, tenderness Extremities exam: PRESENT: full ROM. ABSENT: calf tenderness, clubbing, pedal edema Neurological exam: PRESENT: alert, awake, oriented to person, oriented to place, oriented to time, oriented to situation, CN II-XII grossly intact. ABSENT: motor sensory deficit Psychiatric exam: PRESENT: anxious Focused psych exam: PRESENT: restlessness Results Laboratory Results: 03/22/20 20:50 03/22/20 20:50 03/22/20 03/22/20 03/22/20 20:50 20:50 23:40 WBC 17.8 H RBC 3.76 Hgb 10.7 L Hct 31.8 L MCV 85 MCH 28.5 MCHC 33.7 RDW 13.4 Plt Count 465 H Seg Neutrophils % 81.7 H Carbonic Acid HCO3/H2CO3 Ratio ABG pH ABG pCO2 ABG pO2 ABG HCO3 ABG O2 Saturation ABG Base Excess VBG pH 7.38 VBG pCO2 41.1 VBG HCO3 24.0 VBG Base Excess -1.0 FiO2 Sodium 136.7 L Potassium 3.7 Chloride 100 Carbon Dioxide 26 Anion Gap 11 BUN 14 Creatinine 0.61 Est GFR ( Amer) > 60 Glucose 117 H Calcium 9.2 Ferritin Total Bilirubin 0.7 AST 36 Alkaline Phosphatase 201 H C-Reactive Protein Total Protein 6.9 Albumin 3.7 Triglycerides Cholesterol LDL Cholesterol Direct VLDL Cholesterol HDL Cholesterol 03/23/20 03/23/20 02:57 03:15 WBC RBC Hgb Hct MCV MCH MCHC RDW Plt Count Seg Neutrophils % Carbonic Acid 1.30 HCO3/H2CO3 Ratio 18:1 ABG pH 7.37 ABG pCO2 43.1 ABG pO2 80.2 ABG HCO3 24.1 H ABG O2 Saturation 95.5 ABG Base Excess -1.3 VBG pH VBG pCO2 VBG HCO3 VBG Base Excess FiO2 36% Sodium Potassium Chloride Carbon Dioxide Anion Gap BUN Creatinine Est GFR ( Amer) Glucose Calcium Ferritin 196.00 Total Bilirubin AST Alkaline Phosphatase C-Reactive Protein 365.9 H Total Protein Albumin Triglycerides 97 Cholesterol 316.06 H LDL Cholesterol Direct 252 H VLDL Cholesterol 19.0 HDL Cholesterol 44 03/22/20 03/22/20 03/23/20 20:50 20:50 03:15 Creatine Kinase 158 H CK-MB (CK-2) 5.91 H Troponin I 0.049 0.041 NT-Pro-B Natriuret Pep 2080 H Impressions: Chest X-Ray 03/22/20 21:03 IMPRESSION: Patchy multifocal bilateral airspace disease, especially about both lung apices, suspicious for multifocal pneumonia/viral pneumonitis. Short interval follow-up to clearing is recommended to exclude a more sinister process. copyright 2011 [employer]- All Rights Reserved Assessment and Plan - Diagnosis (1) Acute respiratory failure with hypoxia Is this a current diagnosis for this admission?: Yes Plan: Likely due to underlying bacterial pneumonia or COVID pneumonia complicated by underlying COPD. Admit to IMCU, BiPAP, duo nebs, ICS, LABA, LABA, empiric IV antibiotics, IV steroids, flutter valve, incentive spirometry, sputum culture, blood culture. (2) Elevated troponin Is this a current diagnosis for this admission?: Yes Plan: Denies any history of CAD. Denies any anginal symptoms. EKG sinus rhythm with borderline T wave abnormalities, prolonged QT interval. Mildly elevated troponins. Likely due to demand mismatch. Admit to telemetry, trend troponins, antiplatelets, beta blockers, statins, IV morphine, nitroglycerin, anticoagulants. Cardiology consulted, follow-up recommendations. (3) Tobacco abuse Is this a current diagnosis for this admission?: Yes Plan: Counseled on quitting, nicotine patch will be provided. (4) COPD (chronic obstructive pulmonary disease) Qualifiers: COPD type: COPD with acute exacerbation Qualified Code(s): J44.1 - Chronic obstructive pulmonary disease with (acute) exacerbation Is this a current diagnosis for this admission?: Yes Plan: History of non-oxygen dependent COPD. History of tobacco abuse. Presenting with acute exacerbation. Plan as per above. (5) Pneumonia Qualifiers: Pneumonia type: due to unspecified organism Laterality: bilateral Lung location: unspecified part of lung Qualified Code(s): J18.9 - Pneumonia, unspecified organism Is this a current diagnosis for this admission?: Yes Plan: Chest x-ray positive for multifocal opacities. Likely community-acquired pneumonia caused by gram-positive's including Streptococcus pneumonia, COVID-19 infection is also possibility. Broad-spectrum empiric IV antibiotics, avoid azithromycin as patient has QT prolongation, sputum culture, and culture. (6) Rheumatoid arthritis Qualifiers: Laterality: unspecified laterality Is this a current diagnosis for this admission?: Yes Plan: Takes methadone. Denies any acute exacerbation. No joint swelling or significant inflammation. Resume home meds. Outpatient PCP follow-up. (7) Hyperlipidemia Is this a current diagnosis for this admission?: Yes Plan: Diet and lifestyle modification recommended. Will start on high intensity s tatin. Monitor LFTs. - Time Time Spent with patient: 35 or more minutes Smoking Cessation Education: 3 to 10 minutes Medications reviewed and adjusted accordingly: Yes Anticipated Discharge Disposition: Home, Self Care Anticipated Discharge Timeframe: within 72 hours
[2020-03-23] MEDS ORDERED: NITROGLYCERIN 0.4 MG/TAB 25 TAB/BOTTLE SL PRN (05:34)
[2020-03-23] MEDS: IPRATROPIUM/ALBUTEROL 0.5-2.5 MG/3 ML AMPUL NEB SCH ×3 (07:50→20:07)
--- NOTE | 2020-03-23 08:31 | EKG REPORT ---
SEVERITY:- ABNORMAL ECG - SINUS RHYTHM BORDERLINE T ABNORMALITIES, ANTERIOR LEADS PROLONGED QT INTERVAL : Confirmed by: Vee Figueroa MD 23-Mar-2020 08:31:07
[2020-03-23] MEDS: DOXYCYCLINE HYCLATE 100 MG in DEXTROSE 5%-WATER 250 ML IV SCH ×2 (09:38→21:38)
[2020-03-23] MEDS: FLUTICASONE/UMECLIDIN/VILANTER 100-62.5-25 MCG/DOSE IH SCH (09:39)
[2020-03-23] MEDS: DOCUSATE SODIUM 100 MG CAPSULE PO SCH ×2 (09:40→17:56)
[2020-03-23] MEDS: ZINC SULFATE 220 MG CAPSULE PO SCH (09:40)
[2020-03-23] MEDS: NICOTINE 14 MG/24 HR PATCH.TD24 TD SCH (09:40)
[2020-03-23] MEDS: ASCORBIC ACID 500 MG TABLET PO SCH ×2 (09:40→17:56)
[2020-03-23] MEDS: ASPIRIN 81 MG TABLET, CHEWABLE PO SCH (09:40)
[2020-03-23] MEDS: FAMOTIDINE 20 MG TABLET PO SCH ×2 (09:40→21:48)
[2020-03-23] MEDS ORDERED: LISINOPRIL 5 MG TABLET PO SCH (10:00)
[2020-03-23 11:35] LABS: APPEARANCE,URINE CLOUDY; BILIRUBIN,URINE NEGATIVE (NEGATIVE); COLOR,URINE AMBER; GLUCOSE, URINE NEGATIVE (NEGATIVE); KETONES,URINE 20 mg/dL (NEGATIVE); LEUKOCYTE ESTERASE,URINE TRACE (NEGATIVE); NITRITE,URINE POSITIVE (NEGATIVE); PROTEIN,URINE >=500 mg/dL (NEGATIVE); URINE SPECIFIC GRAVITY 1.023
--- NOTE | 2020-03-23 13:54 | RADIOLOGY REPORT (SQ) ---
EXAM DESCRIPTION: CTA CHEST IMAGES COMPLETED DATE/TIME: 03/23/2020 1:29 pm REASON FOR STUDY: dyspnea, hypoxia, elevated d.dimer COMPARISON: None. TECHNIQUE: CT scan of the chest performed using helical scanning technique with dynamic intravenous contrast injection. Images reviewed with lung, soft tissue and bone windows. Reconstructed coronal and sagittal MPR images reviewed. Additional 3 dimensional post-processing performed to develop Maximal Intensity Projection images (PA P). All images stored on PACS. All CT scanners at this facility use dose modulation, iterative reconstruction, and/or weight based d osing when appropriate to reduce radiation dose to as low as reasonably achievable (ALARA). [facility]: Dose Right [facility]: CareDose [facility]: Dose Right [facility]: Teradose 4D [facility]: Duroline CONTRAST TYPE AND DOSE: contrast/concentration: Isovue 350.00 mmol/ml; Total Contrast Delivered: 70. 0 ml; Total Saline Delivered: 60.0 ml Contrast bolus adequate for pulmonary arteries and aorta. RENAL FUNCTION: BUN 14 creatinine 0.61 RADIATION DOSE: CT Rad equipment meets quality standard of care and radiation dose reduction techniq ues were employed. CTDIvol: 8.4 - 9.3 mGy. DLP: 345 mGy-cm. . LIMITATIONS: None. FINDINGS: LUNGS AND PLEURA: Extensive perihilar and peripheral ground-glass infiltrates. AORTA AND GREAT VESSELS: No aneurysm. No dissection. HEART: No pericardial effusion. No significant coronary artery calcifications. PULMONARY ARTERIES: No emboli visualized in the main pulmonary arteries or the segmental branches. HILAR AND MEDIASTINAL STRUCTURES: No identified masses or abnormal nodes. HARDWARE: None in the chest. UPPER ABDOMEN: No significant findings. Limited exam. THYROID AND OTHER SOFT TISSUES: No masses. No adenopathy. BONES: No acute or significant finding. 3D MIPS: Confirm above findings. OTHER: No other significant finding. IMPRESSION: 1. No pulmonary embolus. No aortic aneurysm or dissection. 2. Extensive ground-glass infiltrates as described. Concerning for atypical infectious/inflammatory process such as COVID-19. COMMENT: Quality ID # [id number]: Final reports with documentation of one or more dose reduction techniques (e.g., Automated exposure control, adjustment of the mA and/or kV according to patient size, use of iterative reconstruction technique) TECHNICAL DOCUMENTATION: JOB ID: [id number] [employer]- All Rights Reserved Reading location - IP/workstation name: [email or web address]
--- NOTE | 2020-03-23 16:55 | PDOC PROGRESS REPORT ---
Subjective Progress Note for:: 03/23/20 Subjective:: ADELAIDA SIMON is a 65 year old female past medical history of non-oxygen dependent COPD, nephrolithiasis, rheumatoid arthritis, and chronic methadone use (4 pain) who was admitted 03/21/2020 with acute respiratory failure with hypoxia secondary to multifocal pneumonia. Patient was seen on afternoon rounds. She was found resting in bed, comfortably, on supplemental oxygen 4 L/min. She is not home O2 dependent. Patient reports continued fatigue, malaise, dyspnea at rest, nonproductive cough, and pleuritic chest pain with deep inspiration and cough. She asks many questions with regard to the likelihood of her testing COVID positive, overall prognosis, and treatment plan. I did speak with her separately by phone; he expresses strong interest in hydroxychloroquine. Both patient and spouse declined Remdesivir and convalescent serum at this time. She denies fever, chills, palpitations orthopnea, abdominal pain, nausea vomiting and diarrhea. She does admit to clear rhinorrhea and sore throat. She has no other questions or concerns at this time. No concerns per nursing. Reason For Visit: PNEUMONIA,ACUTE HYHPOXIA RESPIRATORY FAILURE Physical Exam Vital Signs: Temp Pulse Resp BP Pulse Ox 98.2 F 84 19 170/69 H 99 03/23/20 16:00 03/23/20 16:00 03/23/20 16:00 03/23/20 16:00 03/23/20 16:00 Intake & Output 03/22/20 03/23/20 03/24/20 06:59 06:59 06:59 Intake Total 100 118 Output Total 0 10 Balance 100 108 Weight 69.7 kg General appearance: PRESENT: mild distress, thin, well-developed, well- nourished, other - Acutely ill-appearing Head exam: PRESENT: atraumatic, normocephalic Eye exam: PRESENT: conjunctiva pink, EOMI, PERRLA. ABSENT: scleral icterus Mouth exam: PRESENT: moist, tongue midline Respiratory exam: PRESENT: symmetrical, tachypnea, wheezes - Throughout, other - Supplemental oxygen by nasal cannula. ABSENT: rales, rhonchi Cardiovascular exam: PRESENT: RRR, +S1, +S2. ABSENT: diastolic murmur, rubs, systolic murmur Pulses: PRESENT: normal dorsalis pedis pul Vascular exam: PRESENT: normal capillary refill Extremities exam: PRESENT: full ROM. ABSENT: calf tenderness, clubbing, pedal edema Neurological exam: PRESENT: alert, awake, oriented to person, oriented to place, oriented to time, oriented to situation, CN II-XII grossly intact. ABSENT: motor sensory deficit Psychiatric exam: PRESENT: appropriate affect, normal mood. ABSENT: homicidal ideation, suicidal ideation Skin exam: PRESENT: dry, intact, warm. ABSENT: cyanosis, rash Results Laboratory Results: 03/22/20 20:50 03/22/20 20:50 03/22/20 03/22/20 03/22/20 20:50 20:50 23:40 WBC 17.8 H RBC 3.76 Hgb 10.7 L Hct 31.8 L MCV 85 MCH 28.5 MCHC 33.7 RDW 13.4 Plt Count 465 H Seg Neutrophils % 81.7 H Carbonic Acid HCO3/H2CO3 Ratio ABG pH ABG pCO2 ABG pO2 ABG HCO3 ABG O2 Saturation ABG Base Excess VBG pH 7.38 VBG pCO2 41.1 VBG HCO3 24.0 VBG Base Excess -1.0 FiO2 Sodium 136.7 L Potassium 3.7 Chloride 100 Carbon Dioxide 26 Anion Gap 11 BUN 14 Creatinine 0.61 Est GFR ( Amer) > 60 Glucose 117 H Calcium 9.2 Ferritin Total Bilirubin 0.7 AST 36 Alkaline Phosphatase 201 H C-Reactive Protein Total Protein 6.9 Albumin 3.7 Triglycerides Cholesterol LDL Cholesterol Direct VLDL Cholesterol HDL Cholesterol Urine Color Urine Appearance Urine pH Ur Specific [place] Urine Protein Urine Glucose (UA) Urine Ketones Urine Blood Urine Nitrite Ur Leukocyte Esterase Urine WBC (Auto) Urine RBC (Auto) 03/23/20 03/23/20 03/23/20 02:57 03:15 11:09 WBC RBC Hgb Hct MCV MCH MCHC RDW Plt Count Seg Neutrophils % Carbonic Acid 1.30 HCO3/H2CO3 Ratio 18:1 ABG pH 7.37 ABG pCO2 43.1 ABG pO2 80.2 ABG HCO3 24.1 H ABG O2 Saturation 95.5 ABG Base Excess -1.3 VBG pH VBG pCO2 VBG HCO3 VBG Base Excess FiO2 36% Sodium Potassium Chloride Carbon Dioxide Anion Gap BUN Creatinine Est GFR ( Amer) Glucose Calcium Ferritin 196.00 Total Bilirubin AST Alkaline Phosphatase C-Reactive Protein 365.9 H Total Protein Albumin Triglycerides 97 Cholesterol 316.06 H LDL Cholesterol Direct 252 H VLDL Cholesterol 19.0 HDL Cholesterol 44 Urine Color [place] Urine Appearance CLOUDY Urine pH 5.0 Ur Specific [place] 1.023 Urine Protein >=500 H Urine Glucose (UA) NEGATIVE Urine Ketones 20 H Urine Blood SMALL H Urine Nitrite POSITIVE H Ur Leukocyte Esterase TRACE H Urine WBC (Auto) 18 Urine RBC (Auto) 9 03/22/20 03/22/20 03/23/20 20:50 20:50 03:15 Creatine Kinase 158 H CK-MB (CK-2) 5.91 H Troponin I 0.049 0.041 NT-Pro-B Natriuret Pep 2080 H 03/23/20 11:26 Creatine Kinase CK-MB (CK-2) Troponin I 0.026 NT-Pro-B Natriuret Pep Impressions: Chest X-Ray 03/22/20 21:03 IMPRESSION: Patchy multifocal bilateral airspace disease, especially about both lung apices, suspicious for multifocal pneumonia/viral pneumonitis. Short interval follow-up to clearing is recommended to exclude a more sinister process. copyright 2011 [employer]- All Rights Reserved Chest/Abdomen CTA 03/23/20 00:00 IMPRESSION: 1. No pulmonary embolus. No aortic aneurysm or dissection. 2. Extensive ground-glass infiltrates as described. Concerning for atypical infectious/inflammatory process such as COVID-19. Assessment and Plan - Diagnosis (1) Pneumonia Qualifiers: Pneumonia type: due to unspecified organism Laterality: bilateral Lung location: unspecified part of lung Qualified Code(s): J18.9 - Pneumonia, unspecified organism Is this a current diagnosis for this admission?: Yes Plan: Chest x-ray positive for multifocal opacities. CTA chest is negative for pulmonary embolus. Reveals extensive extensive perihilar and peripheral groundglass opacities consistent with COVID. Likely community-acquired pneumonia caused by gram-positive's including Strepto coccus pneumonia, COVID-19 infection is also possibility. Blood cultures pending. Sputum culture pending. COVID pending. D-dimer 2.41, Ferritin 196, CRP 365 Patient is admitted to the medical floor on continuous cardiac telemetry. She is empirically placed on IV Rocephin and doxycycline. She is placed on full dose Lovenox secondary to elevated d-dimer in patient suspected of COVID pneumonia. Provide supplemental oxygen as needed maintain saturations greater than 89%. Scheduled and as needed nebulizer treatments. IV dexamethasone Zinc, vitamin D, vitamin C, and melatonin supplementation. Encourage pulmonary toilet. Isolation precautions. Long discussion had with both patient and spouse (separately by phone) with regard to treatment plan options. Currently declining Remdesivir and convale scent serum. Requesting hydroxychloroquine. Discussed hydroxychloroquine with Dr. Alex. FDA emergency authorization has been discontinued. Most recent [place] study in support of Hydroxychloroquine has questionable validity/results (non-randomized study w/ compounding factors). In addition; patient's QTc interval was 526 on admission. Will need to decline patient/family request at this time. (2) COPD (chronic obstructive pulmonary disease) Qualifiers: COPD type: COPD with acute exacerbation Qualified Code(s): J44.1 - Chronic obstructive pulmonary disease with (acute) exacerbation Is this a current diagnosis for this admission?: Yes Plan: History of non-oxygen dependent COPD. History of tobacco abuse. Presenting with acute exacerbation. Will provide supplemental oxygen and BiPAP as needed to maintain saturations greater than 89%. Start on scheduled and as needed nebulizer treatments. Start Trelegy Steroid therapy Robitussin as needed. Pulmonary toilet is encouraged with incentive spirometer, flutter valve, and early ambulation. (3) Acute respiratory failure with hypoxia Is this a current diagnosis for this admission?: Yes Plan: Likely due to underlying bacterial pneumonia or COVID pneumonia complicated by underlying COPD. Evaluation management as above. (4) Elevated troponin Is this a current diagnosis for this admission?: Yes Plan: Denies any history of CAD. Denies any anginal symptoms. EKG sinus rhythm with borderline T wave abnormalities, prolonged QT interval. Mildly elevated troponins; 0.049-> 0.041-> 0.026 Likely due to demand mismatch. Monitor on telemetry Daily aspirin and statin therapy. Spoke with Dr. Jackson, no evidence of ACS. Agrees that elevated troponin is secondary to acute respiratory failure with hypoxia. (5) Hyperlipidemia Is this a current diagnosis for this admission?: Yes Plan: Diet and lifestyle modification recommended. Daily statin therapy. (6) Rheumatoid arthritis Qualifiers: Laterality: unspecified laterality Is this a current diagnosis for this admission?: Yes Plan: Holding Xeljanz secondary to community-acquired versus COVID pneumonia. Denies any acute exacerbation. No joint swelling or significant inflammation. Continue home dose methadone. Outpatient PCP follow-up. (7) Tobacco abuse Is this a current diagnosis for this admission?: Yes Plan: Counseled on quitting, nicotine patch will be provided. - Time Time Spent with patient: 35 or more minutes Medications reviewed and adjusted accordingly: Yes Anticipated Discharge Disposition: Home with Home Health Anticipated Discharge Timeframe: >72 hrs
[2020-03-23] MEDS: METHADONE HCL 10 MG TABLET PO SCH ×2 (17:56→21:39)
[2020-03-23] MEDS: ENOXAPARIN SODIUM INJ 80 MG/0.8 ML DISP.SYRIN SUBCUT SCH (17:57)
[2020-03-23] MEDS: ATORVASTATIN CALCIUM 40 MG TABLET PO SCH (21:40)
[2020-03-23] MEDS: CEFTRIAXONE 1 GM/D5W RTU 1 GM/50 ML RTUPB IV SCH (21:45)
[2020-03-23] MEDS: GUAIFENESIN SYRP 200 MG/10 ML UDC PO PRN (23:05)
[2020-03-23] MEDS: DIAZEPAM 5 MG TABLET PO PRN (23:05)
[2020-03-24] MEDS: ENOXAPARIN SODIUM INJ 80 MG/0.8 ML DISP.SYRIN SUBCUT SCH ×2 (05:17→17:15)
[2020-03-24] MEDS: DEXAMETHASONE 4 MG TABLET PO SCH ×3 (05:18→22:22)
[2020-03-24 05:36] LABS: HEMOGLOBIN 10.5 g/dL (12.0-15.5); MEAN CORPUSCULAR HGB CONC 33.9 g/dL (32.0-36.0); MEAN CORPUSCULAR VOLUME 85 fl (80-97); PLATELET COUNT 497 10^3/uL (150-450); RED BLOOD COUNT 3.63 10^6/uL (3.72-5.28); RED CELL DISTRIBUTION WIDTH 13.7 % (11.5-14.0); WHITE BLOOD COUNT 15.1 10^3/uL (4.0-10.5)
[2020-03-24 05:39] LABS: INTERNATIONAL RATION (INR) 2.09; PROTHROMBIN TIME 23.5 SEC (11.4-15.4)
[2020-03-24 05:55] LABS: ALBUMIN 3.6 g/dL (3.5-5.0); ALKALINE PHOSPHATASE 167 U/L (38-126); ANION GAP 13 (5-19); ASPARTATE AMINO TRANSFERASE 30 U/L (14-36); BILIRUBIN,DIRECT 0.5 mg/dL (0.0-0.4); BILIRUBIN,TOTAL 0.5 mg/dL (0.2-1.3); BLOOD UREA NITROGEN 23 mg/dL (7-20); CALCIUM 9.5 mg/dL (8.4-10.2); CARBON DIOXIDE 22 mmol/L (22-30); CHLORIDE 103 mmol/L (98-107); GLUCOSE 120 mg/dL (75-110); PHOSPHORUS 4.8 mg/dL (2.5-4.5); POTASSIUM 4.5 mmol/L (3.6-5.0); TOTAL PROTEIN 6.7 g/dL (6.3-8.2)
[2020-03-24] MEDS: GUAIFENESIN SYRP 200 MG/10 ML UDC PO PRN (06:03)
[2020-03-24 06:07] LABS: ABSOLUTE LYMPHOCYTES# (MANUAL) 0.8 10^3/uL (0.5-4.7); ABSOLUTE MONOCYTES # (MANUAL) 0.8 10^3/uL (0.1-1.4); BASOPHILS % (MANUAL) 0 % (0-2); EOSINOPHILS % (MANUAL) 0 % (0-6); LYMPHOCYTES % (MANUAL) 5 % (13-45); MONOCYTES % (MANUAL) 5 % (3-13); PLATELET COMMENT INCREASED; RBC MORPHOLOGY COMMENT NORMO-CYTIC/CHROMIC; SEGMENTED NEUTROPHILS % (MAN) 90 % (42-78); TOTAL CELLS COUNTED 100
[2020-03-24 06:08] LABS: FREE T4 (FREE THYROXINE) 1.32 ng/dL (0.78-2.19)
[2020-03-24 06:22] LABS: THYROID STIMULATING HORMONE 0.67 uIU/mL (0.47-4.68)
[2020-03-24] MEDS ORDERED: METOPROLOL TARTRATE PF/INJ 5 MG/5 ML SDV IV PRN (06:34)
[2020-03-24] MEDS: IPRATROPIUM/ALBUTEROL 0.5-2.5 MG/3 ML AMPUL NEB SCH ×3 (07:43→19:55)
[2020-03-24] MEDS: LISINOPRIL 10 MG TABLET PO SCH (10:25)
[2020-03-24] MEDS: ASCORBIC ACID 500 MG TABLET PO SCH ×2 (10:26→17:15)
[2020-03-24] MEDS: ASPIRIN 81 MG TABLET, CHEWABLE PO SCH (10:26)
[2020-03-24] MEDS: ZINC SULFATE 220 MG CAPSULE PO SCH (10:26)
[2020-03-24] MEDS: DOCUSATE SODIUM 100 MG CAPSULE PO SCH ×2 (10:27→17:15)
[2020-03-24] MEDS: NICOTINE 14 MG/24 HR PATCH.TD24 TD SCH (10:27)
[2020-03-24] MEDS: METHADONE HCL 10 MG TABLET PO SCH ×3 (10:27→22:23)
[2020-03-24] MEDS: FAMOTIDINE 20 MG TABLET PO SCH ×2 (10:27→22:22)
[2020-03-24] MEDS: DOXYCYCLINE HYCLATE 100 MG in DEXTROSE 5%-WATER 250 ML IV SCH ×2 (10:28→22:24)
[2020-03-24] MEDS: FLUOXETINE HCL 20 MG CAPSULE PO SCH (10:28)
[2020-03-24] MEDS: FLUTICASONE/UMECLIDIN/VILANTER 100-62.5-25 MCG/DOSE IH SCH (10:37)
--- NOTE | 2020-03-24 13:24 | PDOC PROGRESS REPORT ---
Subjective Progress Note for:: 03/24/20 Subjective:: ADELAIDA SIMON is a 65 year old female past medical history of non-oxygen dependent COPD, nephrolithiasis, rheumatoid arthritis, and chronic methadone use (4 pain) who was admitted 03/21/2020 with acute respiratory failure with hypoxia secondary to multifocal pneumonia. Patient was seen on morning rounds. She was found resting in bed, comfortably, on supplemental oxygen 4 L/min. She is not home O2 dependent. Patient reports continued fatigue, malaise, dyspnea at rest, nonproductive cough, and pleuritic chest pain with deep inspiration and cough. Pain is slightly worse today. Discussed QTc interval; patient reports that her pain management provider has be en weaning methadone r/t this. Discussed 's request for hydroxychloroquine being contraindicated. We also discussed her negative COVID testing and my continued high suspicion which will prompt repeat test. She is agreeable and appreciative verification process. She denies fever, chills, palpitations orthopnea, abdominal pain, nausea vomiting and diarrhea. Continued clear rhinorrhea and sore throat. She has no other questions or concerns at this time. No concerns per nursing. Reason For Visit: PNEUMONIA,ACUTE HYHPOXIA RESPIRATORY FAILURE Physical Exam Vital Signs: Temp Pulse Resp BP Pulse Ox 97.8 F 99 16 154/85 H 92 03/24/20 10:00 03/24/20 09:05 03/24/20 07:43 03/24/20 09:05 03/24/20 09:05 Intake & Output 03/23/20 03/24/20 03/25/20 06:59 06:59 06:59 Intake Total 100 2283 Output Total 0 310 Balance 100 1973 Weight 69.7 kg 71.5 kg General appearance: PRESENT: no acute distress, cooperative, well-developed, well-nourished, other - Acutely ill-appearing Head exam: PRESENT: atraumatic, normocephalic Eye exam: PRESENT: conjunctiva pink, EOMI, PERRLA. ABSENT: scleral icterus Ear exam: PRESENT: normal external ear exam Mouth exam: PRESENT: moist, tongue midline Respiratory exam: PRESENT: chest wall tenderness - Pleuritic chest pain, symmetrical, tachypnea, unlabored, wheezes - Decreased compared to yesterday, other - Supplemental oxygen by nasal cannula. ABSENT: rales, rhonchi Cardiovascular exam: PRESENT: RRR, +S1, +S2. ABSENT: diastolic murmur, rubs, systolic murmur Vascular exam: PRESENT: normal capillary refill Rectal exam: PRESENT: deferred Extremities exam: PRESENT: full ROM. ABSENT: calf tenderness, clubbing, pedal edema Musculoskeletal exam: PRESENT: ambulatory Neurological exam: PRESENT: alert, awake, oriented to person, oriented to place, oriented to time, oriented to situation, CN II-XII grossly intact. ABSENT: motor sensory deficit Psychiatric exam: PRESENT: appropriate affect, normal mood. ABSENT: homicidal ideation, suicidal ideation Skin exam: PRESENT: dry, intact, warm. ABSENT: cyanosis, rash Results Laboratory Results: 03/24/20 04:25 03/24/20 04:25 03/24/20 03/24/20 03/24/20 04:25 04:25 04:25 WBC 15.1 H RBC 3.63 L Hgb 10.5 L Hct 31.0 L MCV 85 MCH 29.0 MCHC 33.9 RDW 13.7 Plt Count 497 H Seg Neutrophils % Not Reportable Sodium 137.5 Potassium 4.5 Chloride 103 Carbon Dioxide 22 Anion Gap 13 BUN 23 H Creatinine 0.63 Est GFR ( Amer) > 60 Glucose 120 H Calcium 9.5 Phosphorus 4.8 H Magnesium 2.3 Total Bilirubin 0.5 AST 30 Alkaline Phosphatase 167 H Total Protein 6.7 Albumin 3.6 TSH 0.67 Free T4 1.32 03/22/20 03/22/20 03/23/20 20:50 20:50 03:15 Creatine Kinase 158 H CK-MB (CK-2) 5.91 H Troponin I 0.049 0.041 NT-Pro-B Natriuret Pep 2080 H 03/23/20 03/23/20 11:26 18:52 Creatine Kinase CK-MB (CK-2) Troponin I 0.026 0.013 NT-Pro-B Natriuret Pep Impressions: Chest X-Ray 03/22/20 21:03 IMPRESSION: Patchy multifocal bilateral airspace disease, especially about both lung apices, suspicious for multifocal pneumonia/viral pneumonitis. Short interval follow-up to clearing is recommended to exclude a more sinister process. copyright 2010 [employer]- All Rights Reserved Chest/Abdomen CTA 03/23/20 00:00 IMPRESSION: 1. No pulmonary embolus. No aortic aneurysm or dissection. 2. Extensive ground-glass infiltrates as described. Concerning for atypical infectious/inflammatory process such as COVID-19. Assessment and Plan - Diagnosis (1) Pneumonia Qualifiers: Pneumonia type: due to unspecified organism Laterality: bilateral Lung location: unspecified part of lung Qualified Code(s): J18.9 - Pneumonia, unspecified organism Is this a current diagnosis for this admission?: Yes Plan: Chest x-ray positive for multifocal opacities. CTA chest is negative for pulmonary embolus. Reveals extensive extensive perihilar and peripheral groundglass opacities consistent with COVID. Likely community-acquired pneumonia caused by gram-positive's including Strept ococcus pneumonia, COVID-19 infection is also possibility. Blood cultures negative at 24 hours Sputum culture pending. COVID negative; have requested repeat testing secondary to continued high suspicion. Influenza pending. Legionella pending. D-dimer 2.41, Ferritin 196, CRP 365 Patient is admitted to the medical floor on continuous cardiac telemetry. She is empirically placed on IV Rocephin and doxycycline. She is placed on full dose Lovenox secondary to elevated d-dimer in patient suspected of COVID pneumonia. Provide supplemental oxygen as needed maintain saturations greater than 89%. Scheduled and as needed nebulizer treatments. IV dexamethasone Zinc, vitamin D, vitamin C, and melatonin supplementation. Encourage pulmonary toilet. Isolation precautions. Patient has declined Remdesivir and convalescent serum at this time. Not a candidate for hydroxychloroquine secondary to QTC prolongation. (2) COPD (chronic obstructive pulmonary disease) Qualifiers: COPD type: COPD with acute exacerbation Qualified Code(s): J44.1 - Chronic obstructive pulmonary disease with (acute) exacerbation Is this a current diagnosis for this admission?: Yes Plan: History of non-oxygen dependent COPD. History of tobacco abuse. Presenting with acute exacerbation. Will provide supplemental oxygen and BiPAP as needed to maintain saturations greater than 89%. Start on scheduled and as needed nebulizer treatments. Start Trelegy Steroid therapy Robitussin as needed. Pulmonary toilet is encouraged with incentive spirometer, flutter valve, and early ambulation. (3) Acute respiratory failure with hypoxia Is this a current diagnosis for this admission?: Yes Plan: Likely due to underlying bacterial pneumonia or COVID pneumonia complicated by underlying COPD. Evaluation management as above. (4) Elevated troponin Is this a current diagnosis for this admission?: Yes Plan: Denies any history of CAD. Denies any anginal symptoms. EKG sinus rhythm with borderline T wave abnormalities, prolonged QT interval. Mildly elevated troponins; 0.049-> 0.041-> 0.026 No longer following. Likely due to demand mismatch. Monitor on telemetry Daily aspirin and statin therapy. Spoke with Dr. Jackson, no evidence of ACS. Agrees that elevated troponin is secondary to acute respiratory failure with hypoxia. (5) Hyperlipidemia Is this a current diagnosis for this admission?: Yes Plan: Diet and lifestyle modification recommended. Daily statin therapy. (6) Rheumatoid arthritis Qualifiers: Laterality: unspecified laterality Is this a current diagnosis for this admission?: Yes Plan: Holding Xeljanz secondary to community-acquired versus COVID pneumonia. Denies any acute exacerbation. No joint swelling or significant inflammation. Continue home dose methadone. Monitor QTc interval. Outpatient PCP follow-up. (7) Tobacco abuse Is this a current diagnosis for this admission?: Yes Plan: Counseled on quitting, nicotine patch will be provided. - Time Time Spent with patient: 25-34 minutes Medications reviewed and adjusted accordingly: Yes Anticipated Discharge Disposition: Home, Self Care Anticipated Discharge Timeframe: >72 hrs
[2020-03-24] MEDS: NORMAL SALINE 1000 ML 1,000 ML IV PRN (17:14)
[2020-03-24 17:42] LABS: A TYPE INFLUENZA AG NEGATIVE (NEGATIVE); B INFLUENZA AG NEGATIVE (NEGATIVE)
[2020-03-24] MEDS: ACETYLCYSTEINE 20% SOLN 800 MG/4 ML VIAL.NEB NEB SCH (19:55)
[2020-03-24] MEDS: ATORVASTATIN CALCIUM 40 MG TABLET PO SCH (22:22)
[2020-03-24] MEDS: GUAIFENESIN 600 MG TABLET.SA PO SCH (22:23)
[2020-03-24] MEDS: CEFTRIAXONE 1 GM/D5W RTU 1 GM/50 ML RTUPB IV SCH (22:25)
[2020-03-25] MEDS: ENOXAPARIN SODIUM INJ 80 MG/0.8 ML DISP.SYRIN SUBCUT SCH ×2 (06:33→17:27)
[2020-03-25] MEDS: DEXAMETHASONE 4 MG TABLET PO SCH ×3 (06:34→22:37)
[2020-03-25] MEDS: METHADONE HCL 10 MG TABLET PO SCH ×3 (06:34→22:37)
[2020-03-25 06:36] LABS: HEMATOCRIT 32.6 % (36.0-47.0); HEMOGLOBIN 11.1 g/dL (12.0-15.5); MEAN CORPUSCULAR VOLUME 85 fl (80-97); PLATELET COUNT 546 10^3/uL (150-450); RED BLOOD COUNT 3.82 10^6/uL (3.72-5.28); RED CELL DISTRIBUTION WIDTH 13.7 % (11.5-14.0); WHITE BLOOD COUNT 18.2 10^3/uL (4.0-10.5)
[2020-03-25 06:44] LABS: INTERNATIONAL RATION (INR) 1.79; PROTHROMBIN TIME 20.9 SEC (11.4-15.4)
[2020-03-25 06:57] LABS: ANION GAP 14 (5-19); BLOOD UREA NITROGEN 27 mg/dL (7-20); CALCIUM 9.3 mg/dL (8.4-10.2); CARBON DIOXIDE 17 mmol/L (22-30); CHLORIDE 107 mmol/L (98-107); GLUCOSE 102 mg/dL (75-110); POTASSIUM 4.2 mmol/L (3.6-5.0)
[2020-03-25] MEDS: IPRATROPIUM/ALBUTEROL 0.5-2.5 MG/3 ML AMPUL NEB SCH ×3 (07:41→20:20)
[2020-03-25] MEDS: ACETYLCYSTEINE 20% SOLN 800 MG/4 ML VIAL.NEB NEB SCH ×2 (07:41→20:19)
[2020-03-25 09:17] LABS: ARTERIAL BLOOD BASE EXCESS -2.6 mmol/L; ARTERIAL BLOOD H2CO3 1.13 mmol/L (1.05-1.35); ARTERIAL BLOOD HCO3 21.9 mmol/L (20-24); ARTERIAL BLOOD O2 SATURATION 97.6 % (94-98); ARTERIAL BLOOD PCO2 37.4 mmHg (35-45); ARTERIAL BLOOD PH 7.39 (7.35-7.45); ARTERIAL BLOOD PO2 100.6 mmHg (80-100); ARTERIAL BLOOD TOTAL CO2 23.1 mmol/L (21-25)
[2020-03-25] MEDS: ASCORBIC ACID 500 MG TABLET PO SCH ×2 (09:45→17:26)
[2020-03-25] MEDS: NICOTINE 14 MG/24 HR PATCH.TD24 TD SCH (09:45)
[2020-03-25] MEDS: GUAIFENESIN 600 MG TABLET.SA PO SCH ×2 (09:45→22:37)
[2020-03-25] MEDS: FLUOXETINE HCL 20 MG CAPSULE PO SCH (09:45)
[2020-03-25] MEDS: ZINC SULFATE 220 MG CAPSULE PO SCH (09:45)
[2020-03-25] MEDS: ASPIRIN 81 MG TABLET, CHEWABLE PO SCH (09:45)
[2020-03-25] MEDS: LISINOPRIL 10 MG TABLET PO SCH (09:45)
[2020-03-25] MEDS: DOCUSATE SODIUM 100 MG CAPSULE PO SCH ×2 (09:45→17:27)
[2020-03-25] MEDS: FAMOTIDINE 20 MG TABLET PO SCH ×2 (09:45→22:37)
[2020-03-25] MEDS: FLUTICASONE/UMECLIDIN/VILANTER 100-62.5-25 MCG/DOSE IH SCH (09:46)
[2020-03-25] MEDS: DOXYCYCLINE HYCLATE 100 MG in DEXTROSE 5%-WATER 250 ML IV SCH ×2 (09:47→22:36)
[2020-03-25] MEDS: NORMAL SALINE 1000 ML 1,000 ML IV PRN (13:12)
--- NOTE | 2020-03-25 16:52 | PDOC PROGRESS REPORT ---
Subjective Progress Note for:: 03/25/20 Subjective:: ADELAIDA SIMON is a 65 year old female past medical history of non-oxygen dependent COPD, nephrolithiasis, rheumatoid arthritis, and chronic methadone use (4 pain) who was admitted 03/21/2020 with acute respiratory failure with hypoxia secondary to multifocal pneumonia. Patient was seen on afternoon rounds. She was found sitting up to the edge of her bed, comfortably, on supplemental oxygen. She is not home O2 dependent. Patient reports continued fatigue, cough (now with sputum production), and pleuritic chest pain with deep inspiration and cough. Pain is improved today. Decreased dyspnea at rest. She denies fever, chills, palpitations, orthopnea, abdominal pain, nausea vomiting and diarrhea. She has no other questions or concerns at this time. No concerns per nursing. Reason For Visit: PNEUMONIA,ACUTE HYHPOXIA RESPIRATORY FAILURE Physical Exam Vital Signs: Temp Pulse Resp BP Pulse Ox 97.9 F 79 20 142/77 H 97 03/25/20 15:28 03/25/20 15:28 03/25/20 15:28 03/25/20 15:28 03/25/20 16:08 Intake & Output 03/24/20 03/25/20 03/26/20 06:59 06:59 06:59 Intake Total 2283 2537 1370 Output Total 310 1500 Balance 1973 1037 1370 Weight 71.5 kg 72.8 kg General appearance: PRESENT: no acute distress, cooperative, well-developed, well-nourished Head exam: PRESENT: atraumatic, normocephalic Eye exam: PRESENT: conjunctiva pink, EOMI, PERRLA. ABSENT: scleral icterus Mouth exam: PRESENT: moist, tongue midline Respiratory exam: PRESENT: rhonchi - throughout, symmetrical, unlabored, other - supplemental oxygen. ABSENT: rales, wheezes Cardiovascular exam: PRESENT: RRR. ABSENT: diastolic murmur, rubs, systolic murmur Vascular exam: PRESENT: normal capillary refill Extremities exam: PRESENT: full ROM. ABSENT: calf tenderness, clubbing, pedal edema Musculoskeletal exam: PRESENT: ambulatory Neurological exam: PRESENT: alert, awake, oriented to person, oriented to place, oriented to time, oriented to situation, CN II-XII grossly intact. ABSENT: motor sensory deficit Psychiatric exam: PRESENT: appropriate affect, normal mood. ABSENT: homicidal ideation, suicidal ideation Skin exam: PRESENT: dry, intact, warm. ABSENT: cyanosis, rash Results Laboratory Results: 03/25/20 06:20 03/25/20 06:20 03/25/20 03/25/20 03/25/20 06:20 06:20 06:20 WBC 18.2 H RBC 3.82 Hgb 11.1 L Hct 32.6 L MCV 85 MCH 29.0 MCHC 34.0 RDW 13.7 Plt Count 546 H Carbonic Acid HCO3/H2CO3 Ratio ABG pH ABG pCO2 ABG pO2 ABG HCO3 ABG O2 Saturation ABG Base Excess FiO2 Sodium 137.6 Potassium 4.2 Chloride 107 Carbon Dioxide 17 L Anion Gap 14 BUN 27 H Creatinine 0.60 Est GFR ( Amer) > 60 Glucose 102 Calcium 9.3 Ferritin 170.00 C-Reactive Protein 83.0 H 03/25/20 08:50 WBC RBC Hgb Hct MCV MCH MCHC RDW Plt Count Carbonic Acid 1.13 HCO3/H2CO3 Ratio 19:1 ABG pH 7.39 ABG pCO2 37.4 ABG pO2 100.6 H ABG HCO3 21.9 ABG O2 Saturation 97.6 ABG Base Excess -2.6 FiO2 44% Sodium Potassium Chloride Carbon Dioxide Anion Gap BUN Creatinine Est GFR ( Amer) Glucose Calcium Ferritin C-Reactive Protein 03/22/20 03/22/20 03/23/20 20:50 20:50 03:15 Creatine Kinase 158 H CK-MB (CK-2) 5.91 H Troponin I 0.049 0.041 NT-Pro-B Natriuret Pep 2080 H 03/23/20 03/23/20 11:26 18:52 Creatine Kinase CK-MB (CK-2) Troponin I 0.026 0.013 NT-Pro-B Natriuret Pep Impressions: Chest X-Ray 03/22/20 21:03 IMPRESSION: Patchy multifocal bilateral airspace disease, especially about both lung apices, suspicious for multifocal pneumonia/viral pneumonitis. Short interval follow-up to clearing is recommended to exclude a more sinister process. copyright 2010 [employer]- All Rights Reserved Chest/Abdomen CTA 03/23/20 00:00 IMPRESSION: 1. No pulmonary embolus. No aortic aneurysm or dissection. 2. Extensive ground-glass infiltrates as described. Concerning for atypical infectious/inflammatory process such as COVID-19. Assessment and Plan - Diagnosis (1) Pneumonia Qualifiers: Pneumonia type: due to unspecified organism Laterality: bilateral Lung location: unspecified part of lung Qualified Code(s): J18.9 - Pneumonia, unspecified organism Is this a current diagnosis for this admission?: Yes Plan: Chest x-ray positive for multifocal opacities. CTA chest is negative for pulmonary embolus. Reveals extensive extensive perihilar and peripheral groundglass opacities consistent with COVID. Likely community-acquired pneumonia caused by gram-positive's including Streptoc occus pneumonia, COVID-19 infection is also possibility. Blood cultures negative at 48 hours Sputum culture pending. COVID negative; have requested repeat testing secondary to continued high suspicion. Repeat COVID pending. Influenza negative. Legionella pending. D-dimer 2.41, Ferritin 196-> 1.70, CRP 365-> 83 Patient is admitted to the medical floor on continuous cardiac telemetry. She is empirically placed on IV Rocephin and doxycycline. She is placed on full dose Lovenox secondary to elevated d-dimer in patient suspected of COVID pneumonia. Provide supplemental oxygen as needed maintain saturations greater than 89%. Scheduled and as needed nebulizer treatments. IV dexamethasone Zinc, vitamin D, vitamin C, and melatonin supplementation. Encourage pulmonary toilet. Isolation precautions. Patient has declined Remdesivir and convalescent serum at this time. Not a candidate for hydroxychloroquine secondary to QTC prolongation. (2) COPD (chronic obstructive pulmonary disease) Qualifiers: COPD type: COPD with acute exacerbation Qualified Code(s): J44.1 - Chronic obstructive pulmonary disease with (acute) exacerbation Is this a current diagnosis for this admission?: Yes Plan: History of non-oxygen dependent COPD. History of tobacco abuse. Presenting with acute exacerbation. Will provide supplemental oxygen and BiPAP as needed to maintain saturations g reater than 89%. Continue scheduled and as needed nebulizer treatments. Start Trelegy Steroid therapy Robitussin as needed. Pulmonary toilet is encouraged with incentive spirometer, flutter valve, and early ambulation. (3) Acute respiratory failure with hypoxia Is this a current diagnosis for this admission?: Yes Plan: Likely due to underlying bacterial pneumonia or COVID pneumonia complicated by underlying COPD. Evaluation management as above. (4) Elevated troponin Is this a current diagnosis for this admission?: Yes Plan: Denies any history of CAD. Denies any anginal symptoms. EKG sinus rhythm with borderline T wave abnormalities, prolonged QT interval. Mildly elevated troponins; 0.049-> 0.041-> 0.026 No longer following. Likely due to demand mismatch. Monitor on telemetry Daily aspirin and statin therapy. Spoke with Dr. Jackson, no evidence of ACS. Agrees that elevated troponin is secondary to acute respiratory failure with hypoxia. (5) Hyperlipidemia Is this a current diagnosis for this admission?: Yes Plan: Diet and lifestyle modification recommended. Daily statin therapy. (6) Rheumatoid arthritis Qualifiers: Laterality: unspecified laterality Is this a current diagnosis for this admission?: Yes Plan: Holding Xeljanz secondary to community-acquired versus COVID pneumonia. Denies any acute exacerbation. No joint swelling or significant inflammation. Continue home dose methadone. Monitor QTc interval. Outpatient PCP follow-up. (7) Tobacco abuse Is this a current diagnosis for this admission?: Yes Plan: Counseled on quitting, nicotine patch will be provided. - Time Time Spent with patient: 25-34 minutes Medications reviewed and adjusted accordingly: Yes Anticipated Discharge Disposition: Home, Self Care Anticipated Discharge Timeframe: undetermined
[2020-03-25] MEDS: CEFTRIAXONE 1 GM/D5W RTU 1 GM/50 ML RTUPB IV SCH (22:36)
[2020-03-25] MEDS: DIAZEPAM 5 MG TABLET PO PRN (22:37)
[2020-03-25] MEDS: ATORVASTATIN CALCIUM 40 MG TABLET PO SCH (22:37)
[2020-03-26] MEDS: NORMAL SALINE 1000 ML 1,000 ML IV PRN ×2 (01:42→16:10)
[2020-03-26] MEDS: DEXAMETHASONE 4 MG TABLET PO SCH ×3 (06:12→22:40)
[2020-03-26] MEDS: METHADONE HCL 10 MG TABLET PO SCH ×3 (06:14→22:40)
[2020-03-26] MEDS: ENOXAPARIN SODIUM INJ 80 MG/0.8 ML DISP.SYRIN SUBCUT SCH ×2 (06:14→18:06)
[2020-03-26 07:10] LABS: HEMATOCRIT 33.9 % (36.0-47.0); HEMOGLOBIN 11.5 g/dL (12.0-15.5); MEAN CORPUSCULAR HEMOGLOBIN 28.7 pg (27.0-33.4); MEAN CORPUSCULAR HGB CONC 33.9 g/dL (32.0-36.0); MEAN CORPUSCULAR VOLUME 85 fl (80-97); PLATELET COUNT 582 10^3/uL (150-450); RED CELL DISTRIBUTION WIDTH 13.6 % (11.5-14.0); WHITE BLOOD COUNT 18.4 10^3/uL (4.0-10.5)
[2020-03-26] MEDS: IPRATROPIUM/ALBUTEROL 0.5-2.5 MG/3 ML AMPUL NEB SCH ×3 (07:44→20:32)
[2020-03-26] MEDS: ACETYLCYSTEINE 20% SOLN 800 MG/4 ML VIAL.NEB NEB SCH ×2 (07:45→20:32)
[2020-03-26] MEDS: FAMOTIDINE 20 MG TABLET PO SCH ×2 (10:06→22:40)
[2020-03-26] MEDS: LISINOPRIL 10 MG TABLET PO SCH (10:06)
[2020-03-26] MEDS: GUAIFENESIN SYRP 200 MG/10 ML UDC PO PRN (10:06)
[2020-03-26] MEDS: DOCUSATE SODIUM 100 MG CAPSULE PO SCH ×2 (10:06→18:06)
[2020-03-26] MEDS: ASPIRIN 81 MG TABLET, CHEWABLE PO SCH (10:06)
[2020-03-26] MEDS: ZINC SULFATE 220 MG CAPSULE PO SCH (10:06)
[2020-03-26] MEDS: GUAIFENESIN 600 MG TABLET.SA PO SCH ×2 (10:06→22:40)
[2020-03-26] MEDS: FLUOXETINE HCL 20 MG CAPSULE PO SCH (10:06)
[2020-03-26] MEDS: ASCORBIC ACID 500 MG TABLET PO SCH ×2 (10:06→18:06)
[2020-03-26] MEDS: NICOTINE 14 MG/24 HR PATCH.TD24 TD SCH (10:07)
[2020-03-26] MEDS: FLUTICASONE/UMECLIDIN/VILANTER 100-62.5-25 MCG/DOSE IH SCH (10:08)
[2020-03-26] MEDS: DOXYCYCLINE HYCLATE 100 MG in DEXTROSE 5%-WATER 250 ML IV SCH ×2 (10:22→22:39)
--- NOTE | 2020-03-26 10:39 | PDOC PROGRESS REPORT ---
Subjective Progress Note for:: 03/26/20 Subjective:: ADELAIDA SIMON is a 65 year old female past medical history of non-oxygen dependent COPD, nephrolithiasis, rheumatoid arthritis, and chronic methadone use (4 pain) who was admitted 03/21/2020 with acute respiratory failure with hypoxia secondary to multifocal pneumonia. Patient was seen on morning rounds. She was found sitting up in the recliner, comfortably, on supplemental oxygen at 2.5 lpm; maintaining SpO2 in the mid to high 90s. She is not home O2 dependent. Patient reports continued fatigue, cough (now with sputum production), and pleuritic chest pain with deep inspiration and cough. She reports cough and pain are increased. Decreased dyspnea. She denies fever, chills, palpitations, orthopnea, abdominal pain, nausea vomiting and diarrhea. She has no other questions or concerns at this time. No concerns per nursing. Reason For Visit: PNEUMONIA,ACUTE HYHPOXIA RESPIRATORY FAILURE Physical Exam Vital Signs: Temp Pulse Resp BP Pulse Ox 98.0 F 88 18 162/87 H 98 03/26/20 07:44 03/26/20 07:46 03/26/20 07:46 03/26/20 07:44 03/26/20 07:46 Intake & Output 03/25/20 03/26/20 03/27/20 06:59 06:59 06:59 Intake Total 2537 2930 Output Total 1500 2200 Balance 1037 730 Weight 72.8 kg 72.8 kg General appearance: PRESENT: no acute distress, cooperative, well-developed, well-nourished Head exam: PRESENT: atraumatic, normocephalic Eye exam: PRESENT: conjunctiva pink, EOMI, PERRLA. ABSENT: scleral icterus Mouth exam: PRESENT: moist, tongue midline Respiratory exam: PRESENT: clear to auscultation kristin, rhonchi - throughout, symmetrical, unlabored, wheezes, other - supplemental ox. ABSENT: rales Cardiovascular exam: PRESENT: RRR. ABSENT: diastolic murmur, rubs, systolic murmur Vascular exam: PRESENT: normal capillary refill Extremities exam: PRESENT: full ROM. ABSENT: calf tenderness, clubbing, pedal edema Musculoskeletal exam: PRESENT: ambulatory Neurological exam: PRESENT: alert, awake, oriented to person, oriented to place, oriented to time, oriented to situation, CN II-XII grossly intact. ABSENT: motor sensory deficit Psychiatric exam: PRESENT: anxious, appropriate affect. ABSENT: homicidal ideation, suicidal ideation Skin exam: PRESENT: dry, intact, warm. ABSENT: cyanosis, rash Results Laboratory Results: 03/26/20 06:49 03/25/20 06:20 03/25/20 03/26/20 06:20 06:49 WBC 18.4 H RBC 4.00 Hgb 11.5 L Hct 33.9 L MCV 85 MCH 28.7 MCHC 33.9 RDW 13.6 Plt Count 582 H Ferritin 170.00 C-Reactive Protein 83.0 H 03/22/20 03/22/20 03/23/20 20:50 20:50 03:15 Creatine Kinase 158 H CK-MB (CK-2) 5.91 H Troponin I 0.049 0.041 NT-Pro-B Natriuret Pep 2080 H 03/23/20 03/23/20 11:26 18:52 Creatine Kinase CK-MB (CK-2) Troponin I 0.026 0.013 NT-Pro-B Natriuret Pep Impressions: Chest X-Ray 03/22/20 21:03 IMPRESSION: Patchy multifocal bilateral airspace disease, especially about both lung apices, suspicious for multifocal pneumonia/viral pneumonitis. Short interval follow-up to clearing is recommended to exclude a more sinister process. copyright 2011 [employer]- All Rights Reserved Chest/Abdomen CTA 03/23/20 00:00 IMPRESSION: 1. No pulmonary embolus. No aortic aneurysm or dissection. 2. Extensive ground-glass infiltrates as described. Concerning for atypical infectious/inflammatory process such as COVID-19. Assessment and Plan - Diagnosis (1) Pneumonia Qualifiers: Pneumonia type: due to unspecified organism Laterality: bilateral Lung location: unspecified part of lung Qualified Code(s): J18.9 - Pneumonia, unspecified organism Is this a current diagnosis for this admission?: Yes Plan: Chest x-ray positive for multifocal opacities. CTA chest is negative for pulmonary embolus. Reveals extensive extensive p erihilar and peripheral groundglass opacities consistent with COVID. Likely community-acquired pneumonia caused by gram-positive's including Streptococcus pneumonia, COVID-19 infection is also possibility. Blood cultures negative at 72 hours Sputum culture pending; have not yet been obtained. COVID negative. Repeat COVID pending. Influenza negative. Legionella pending. D-dimer 2.41, Ferritin 196-> 1.70, CRP 365-> 83 Patient is admitted to the medical floor on continuous cardiac telemetry. She is empirically placed on IV Rocephin and doxycycline. She is placed on full dose Lovenox secondary to elevated d-dimer in patient suspected of COVID pneumonia. Provide supplemental oxygen as needed maintain saturations greater than 89%. Scheduled and as needed nebulizer treatments. IV dexamethasone Zinc, vitamin D, vitamin C, and melatonin supplementation. Encourage pulmonary toilet. Isolation precautions. Patient has declined Remdesivir and convalescent serum at this time. Not a candidate for hydroxychloroquine secondary to QTC prolongation. (2) COPD (chronic obstructive pulmonary disease) Qualifiers: COPD type: COPD with acute exacerbation Qualified Code(s): J44.1 - Chronic obstructive pulmonary disease with (acute) exacerbation Is this a current diagnosis for this admission?: Yes Plan: History of non-oxygen dependent COPD. History of tobacco abuse. Presenting with acute exacerbation. Will provide supplemental oxygen and BiPAP as needed to maintain saturations greater than 89%. Continue scheduled and as needed nebulizer treatments. Continue mucomyst nebs twice daily. Start Trelegy Steroid therapy Robitussin as needed. Pulmonary toilet is encouraged with incentive spirometer, flutter valve, and early ambulation. (3) Acute respiratory failure with hypoxia Is this a current diagnosis for this admission?: Yes Plan: Likely due to underlying bacterial pneumonia or COVID pneumonia complicated by underlying COPD. Evaluation management as above. (4) Elevated troponin Is this a current diagnosis for this admission?: Yes Plan: Denies any history of CAD. Denies any anginal symptoms. EKG sinus rhythm with borderline T wave abnormalities, prolonged QT interval. Mildly elevated troponins; 0.049-> 0.041-> 0.026 No longer following. Likely due to demand mismatch. Monitor on telemetry Daily aspirin and statin therapy. Spoke with Dr. Jackson, no evidence of ACS. Agrees that elevated troponin is secondary to acute respiratory failure with hypoxia. (5) Hyperlipidemia Is this a current diagnosis for this admission?: Yes Plan: Diet and lifestyle modification recommended. Daily statin therapy. (6) Rheumatoid arthritis Qualifiers: Laterality: unspecified laterality Is this a current diagnosis for this admission?: Yes Plan: Holding Xeljanz secondary to community-acquired versus COVID pneumonia. Denies any acute exacerbation. No joint swelling or significant inflammation. Continue home dose methadone. Monitor QTc interval. Outpatient PCP follow-up. (7) Tobacco abuse Is this a current diagnosis for this admission?: Yes Plan: Counseled on quitting, nicotine patch will be provided. - Time Time Spent with patient: 25-34 minutes Medications reviewed and adjusted accordingly: Yes Anticipated Discharge Disposition: Home, Self Care Anticipated Discharge Timeframe: within 72 hours
[2020-03-26] MEDS: GUAIFENESIN/CODEINE PHOS 100-10 MG/ 5 ML UDC PO PRN ×2 (16:10→22:39)
[2020-03-26] MEDS: ATORVASTATIN CALCIUM 40 MG TABLET PO SCH (22:40)
[2020-03-26] MEDS: CEFTRIAXONE 1 GM/D5W RTU 1 GM/50 ML RTUPB IV SCH (22:44)
[2020-03-27] MEDS: METHADONE HCL 10 MG TABLET PO SCH ×3 (06:04→22:08)
[2020-03-27] MEDS: DEXAMETHASONE 4 MG TABLET PO SCH ×2 (06:05→17:45)
[2020-03-27 06:14] LABS: ABSOLUTE LYMPHOCYTES (AUTO) 1.1 10^3/uL (0.5-4.7); ABSOLUTE MONOCYTES (AUTO) 1.4 10^3/uL (0.1-1.4); ABSOLUTE NEUT (AUTO) 13.8 10^3/uL (1.7-8.2); BASOPHILS % (AUTO) 0.2 % (0-2); EOSINOPHILS % (AUTO) 0.3 % (0-6); HEMATOCRIT 32.2 % (36.0-47.0); LYMPHOCYTES % (AUTO) 6.5 % (13-45); MEAN CORPUSCULAR HEMOGLOBIN 28.7 pg (27.0-33.4); MEAN CORPUSCULAR HGB CONC 34.1 g/dL (32.0-36.0); MEAN CORPUSCULAR VOLUME 84 fl (80-97); MONOCYTES % (AUTO) 8.5 % (3-13); PLATELET COUNT 489 10^3/uL (150-450); RED BLOOD COUNT 3.82 10^6/uL (3.72-5.28); RED CELL DISTRIBUTION WIDTH 13.8 % (11.5-14.0); SEGMENTED NEUTROPHILS % (AUTO) 84.5 % (42-78); TOTAL CELLS COUNTED % (AUTO) 100 %; WHITE BLOOD COUNT 16.3 10^3/uL (4.0-10.5)
[2020-03-27] MEDS: IPRATROPIUM/ALBUTEROL 0.5-2.5 MG/3 ML AMPUL NEB SCH ×3 (08:14→20:07)
[2020-03-27] MEDS: ACETYLCYSTEINE 20% SOLN 800 MG/4 ML VIAL.NEB NEB SCH ×2 (08:14→20:07)
[2020-03-27] MEDS: FLUOXETINE HCL 20 MG CAPSULE PO SCH (09:11)
[2020-03-27] MEDS: GUAIFENESIN 600 MG TABLET.SA PO SCH ×2 (09:12→22:08)
[2020-03-27] MEDS: ASCORBIC ACID 500 MG TABLET PO SCH ×2 (09:12→17:44)
[2020-03-27] MEDS: ASPIRIN 81 MG TABLET, CHEWABLE PO SCH (09:12)
[2020-03-27] MEDS: LISINOPRIL 10 MG TABLET PO SCH (09:13)
[2020-03-27] MEDS: FAMOTIDINE 20 MG TABLET PO SCH ×2 (09:13→22:08)
[2020-03-27] MEDS: GUAIFENESIN/CODEINE PHOS 100-10 MG/ 5 ML UDC PO PRN (09:15)
[2020-03-27] MEDS: ZINC SULFATE 220 MG CAPSULE PO SCH (09:15)
[2020-03-27] MEDS: NICOTINE 14 MG/24 HR PATCH.TD24 TD SCH (09:16)
[2020-03-27] MEDS: ENOXAPARIN SODIUM INJ 40 MG/0.4 ML DISP.SYRIN SUBCUT SCH (09:18)
[2020-03-27] MEDS: DOCUSATE SODIUM 100 MG CAPSULE PO SCH ×2 (09:21→17:46)
[2020-03-27] MEDS: FLUTICASONE/UMECLIDIN/VILANTER 100-62.5-25 MCG/DOSE IH SCH (10:00)
[2020-03-27] MEDS: DOXYCYCLINE HYCLATE 100 MG in DEXTROSE 5%-WATER 250 ML IV SCH ×2 (10:59→22:08)
--- NOTE | 2020-03-27 17:44 | PDOC PROGRESS REPORT ---
Subjective Progress Note for:: 03/27/20 Subjective:: ADELAIDA SIMON is a 65 year old female past medical history of non-oxygen dependent COPD, nephrolithiasis, rheumatoid arthritis, and chronic methadone use (4 pain) who was admitted 03/21/2020 with acute respiratory failure with hypoxia secondary to multifocal pneumonia. Patient was seen on morning rounds. She was found resting in bed, comfortably, on supplemental oxygen at 3 lpm; maintaining SpO2 in the low 90s. She is not home O2 dependent. Patient reports continued fatigue. Cough (now with sputum production) and pleuritic chest pain are increased. Decreased dyspnea. Patient reports hx of 30+ years tobacco use; transitioned to E-cig ~5 years ago. Reports >1 year of progressively worsening dyspnea now limiting her ability to preform household tasks. She is concerned about possible chronic lung disease; no prior eval by pulmonology or formal dx of COPD. She denies fever, chills, palpitations, orthopnea, abdominal pain, nausea vomiting and diarrhea. She has no other questions or concerns at this time. No concerns per nursing. Reason For Visit: PNEUMONIA,ACUTE HYHPOXIA RESPIRATORY FAILURE Physical Exam Vital Signs: Temp Pulse Resp BP Pulse Ox 98.2 F 85 16 173/77 H 91 L 03/27/20 10:00 03/27/20 13:59 03/27/20 13:59 03/27/20 07:42 03/27/20 13:59 Intake & Output 03/26/20 03/27/20 03/28/20 06:59 06:59 06:59 Intake Total 2930 2262 483 Output Total 2200 1300 Balance 730 962 483 Weight 72.8 kg 68 kg General appearance: PRESENT: no acute distress, disheveled - acutely ill appearing, well-developed, well-nourished Head exam: PRESENT: atraumatic, normocephalic Eye exam: PRESENT: conjunctiva pink, EOMI, PERRLA. ABSENT: scleral icterus Mouth exam: PRESENT: moist, tongue midline Neck exam: ABSENT: carotid bruit, JVD, lymphadenopathy, thyromegaly Respiratory exam: PRESENT: rhonchi - throughout, symmetrical, unlabored, wheezes - expiratory; increased in bilateral lower lobes, other - supplemental oxygen. ABSENT: rales Cardiovascular exam: PRESENT: RRR. ABSENT: diastolic murmur, rubs, systolic murmur Vascular exam: PRESENT: normal capillary refill Extremities exam: PRESENT: full ROM. ABSENT: calf tenderness, clubbing, pedal edema Musculoskeletal exam: PRESENT: ambulatory Neurological exam: PRESENT: alert, awake, oriented to person, oriented to place, oriented to time, oriented to situation, CN II-XII grossly intact. ABSENT: motor sensory deficit Psychiatric exam: PRESENT: appropriate affect, normal mood. ABSENT: homicidal ideation, suicidal ideation Skin exam: PRESENT: dry, intact, warm. ABSENT: cyanosis, rash Results Laboratory Results: 03/27/20 04:56 03/25/20 06:20 03/27/20 04:56 WBC 16.3 H RBC 3.82 Hgb 11.0 L Hct 32.2 L MCV 84 MCH 28.7 MCHC 34.1 RDW 13.8 Plt Count 489 H Seg Neutrophils % 84.5 H 03/22/20 03/22/20 03/23/20 20:50 20:50 03:15 Creatine Kinase 158 H CK-MB (CK-2) 5.91 H Troponin I 0.049 0.041 NT-Pro-B Natriuret Pep 2080 H 03/23/20 03/23/20 11:26 18:52 Creatine Kinase CK-MB (CK-2) Troponin I 0.026 0.013 NT-Pro-B Natriuret Pep Impressions: Chest X-Ray 03/22/20 21:03 IMPRESSION: Patchy multifocal bilateral airspace disease, especially about both lung apices, suspicious for multifocal pneumonia/viral pneumonitis. Short interval follow-up to clearing is recommended to exclude a more sinister process. copyright 2011 [employer]- All Rights Reserved Chest/Abdomen CTA 03/23/20 00:00 IMPRESSION: 1. No pulmonary embolus. No aortic aneurysm or dissection. 2. Extensive ground-glass infiltrates as described. Concerning for atypical infectious/inflammatory process such as COVID-19. Assessment and Plan - Diagnosis (1) Pneumonia Qualifiers: Pneumonia type: due to unspecified organism Laterality: bilateral Lung location: unspecified part of lung Qualified Code(s): J18.9 - Pneumonia, unspecified organism Is this a current diagnosis for this admission?: Yes Plan: Chest x-ray positive for multifocal opacities. CTA chest is negative for pulmonary embolus. Reveals extensive extensive perihilar and peripheral groundglass opacities. Likely community-acquired pneumonia caused by gram-positive's including Streptococcus pneumonia. Blood cultures negative at 4 days Sputum culture pending; have not yet been obtained. COVID negative. Repeat COVID negative. Influenza negative. Legionella negative. D-dimer 2.41, Ferritin 196-> 1.70, CRP 365-> 83 Patient is admitted to the medical floor. She is empirically placed on IV Rocephin and doxycycline; Day #4. Received full dose Lovenox related to elevated d-dimer while ruling out COVID. His COVID has now been confirmed negative; transition to DVT prophylaxis Lovenox. Pulmonology is consulted; appreciate Dr. Aaron's evaluation and recommendations. (Discussed w/ Dr. Aaron today; will be available to see patient tomorrow). Provide supplemental oxygen as needed maintain saturations greater than 89%. Scheduled and as needed nebulizer treatments. IV dexamethasone; begin weaning Zinc, vitamin D, vitamin C, and melatonin supplementation. Encourage pulmonary toilet. Patient did note receive Remdesivir or convalescent serum. (2) COPD (chronic obstructive pulmonary disease) Qualifiers: COPD type: COPD with acute exacerbation Qualified Code(s): J44.1 - Chronic obstructive pulmonary disease with (acute) exacerbation Is this a current diagnosis for this admission?: Yes Plan: Likely w/ undiagnosed COPD. History of tobacco abuse. Presenting with acute exacerbation. Will provide supplemental oxygen and BiPAP as needed to maintain saturations greater than 89%. Continue scheduled and as needed nebulizer treatments. Continue mucomyst nebs twice daily. Start Trelegy Steroid therapy; have begun weaning. Robitussin as needed. Pulmonary toilet is encouraged with incentive spirometer, flutter valve, and early ambulation. Pulmonology is consulted; appreciate Dr. Aaron's evaluation and recom mendations. (Discussed w/ Dr. Aaron today; will be available to see patient tomorrow). (3) Acute respiratory failure with hypoxia Is this a current diagnosis for this admission?: Yes Plan: Likely due to underlying bacterial pneumonia or COVID pneumonia complicated by underlying COPD. Discussed w/ Dr. Aaron; will see patient tomorrow. Greatly appreciate his assistance. Remaining evaluation and management as above. (4) Elevated troponin Is this a current diagnosis for this admission?: Yes Plan: Denies any history of CAD. Denies any anginal symptoms. EKG sinus rhythm with borderline T wave abnormalities, prolonged QT interval. Mildly elevated troponins; 0.049-> 0.041-> 0.026 No longer following. Likely due to demand mismatch. Monitor on telemetry Daily aspirin and statin therapy. Spoke with Dr. Jackson, no evidence of ACS. Agrees that elevated troponin is secondary to acute respiratory failure with hypoxia. (5) Hyperlipidemia Is this a current diagnosis for this admission?: Yes Plan: Diet and lifestyle modification recommended. Daily statin therapy. (6) Rheumatoid arthritis Qualifiers: Laterality: unspecified laterality Is this a current diagnosis for this admission?: Yes Plan: Holding Xeljanz secondary to community-acquired pneumonia. Denies any acute exacerbation. No joint swelling or significant inflammation. Continue home dose methadone. Monitor QTc interval. Outpatient PCP follow-up. (7) Tobacco abuse Is this a current diagnosis for this admission?: Yes Plan: Counseled on quitting, nicotine patch will be provided. - Time Time Spent with patient: 25-34 minutes Medications reviewed and adjusted accordingly: Yes Anticipated Discharge Disposition: Home, Self Care Anticipated Discharge Timeframe: within 72 hours
[2020-03-27] MEDS: ATORVASTATIN CALCIUM 40 MG TABLET PO SCH (22:08)
[2020-03-27] MEDS: CEFTRIAXONE 1 GM/D5W RTU 1 GM/50 ML RTUPB IV SCH (22:09)
[2020-03-28 05:03] LABS: HEMATOCRIT 33.5 % (36.0-47.0); HEMOGLOBIN 11.5 g/dL (12.0-15.5); MEAN CORPUSCULAR HEMOGLOBIN 28.9 pg (27.0-33.4); MEAN CORPUSCULAR HGB CONC 34.4 g/dL (32.0-36.0); MEAN CORPUSCULAR VOLUME 84 fl (80-97); PLATELET COUNT 598 10^3/uL (150-450); WHITE BLOOD COUNT 19.1 10^3/uL (4.0-10.5)
[2020-03-28] MEDS: DEXAMETHASONE 4 MG TABLET PO SCH ×2 (06:00→18:07)
[2020-03-28] MEDS: METHADONE HCL 10 MG TABLET PO SCH ×3 (06:00→22:10)
[2020-03-28] MEDS: ACETYLCYSTEINE 20% SOLN 800 MG/4 ML VIAL.NEB NEB SCH ×2 (08:01→19:53)
[2020-03-28] MEDS: IPRATROPIUM/ALBUTEROL 0.5-2.5 MG/3 ML AMPUL NEB SCH ×3 (08:01→19:51)
[2020-03-28] MEDS: DOXYCYCLINE HYCLATE 100 MG in DEXTROSE 5%-WATER 250 ML IV SCH ×2 (10:59→22:10)
[2020-03-28] MEDS: DOCUSATE SODIUM 100 MG CAPSULE PO SCH ×2 (11:05→18:42)
[2020-03-28] MEDS: ASPIRIN 81 MG TABLET, CHEWABLE PO SCH (11:09)
[2020-03-28] MEDS: ASCORBIC ACID 500 MG TABLET PO SCH ×2 (11:09→18:08)
[2020-03-28] MEDS: GUAIFENESIN 600 MG TABLET.SA PO SCH ×2 (11:09→22:10)
[2020-03-28] MEDS: LISINOPRIL 10 MG TABLET PO SCH (11:09)
[2020-03-28] MEDS: FLUOXETINE HCL 20 MG CAPSULE PO SCH (11:09)
[2020-03-28] MEDS: ZINC SULFATE 220 MG CAPSULE PO SCH (11:09)
[2020-03-28] MEDS: FAMOTIDINE 20 MG TABLET PO SCH ×2 (11:09→22:10)
[2020-03-28] MEDS: NICOTINE 14 MG/24 HR PATCH.TD24 TD SCH (11:10)
[2020-03-28] MEDS: GUAIFENESIN/CODEINE PHOS 100-10 MG/ 5 ML UDC PO PRN (11:10)
[2020-03-28] MEDS: ENOXAPARIN SODIUM INJ 40 MG/0.4 ML DISP.SYRIN SUBCUT SCH (11:10)
[2020-03-28] MEDS: FLUTICASONE/UMECLIDIN/VILANTER 100-62.5-25 MCG/DOSE IH SCH (11:11)
--- NOTE | 2020-03-28 11:53 | PDOC PROGRESS REPORT ---
Subjective Progress Note for:: 03/28/20 Subjective:: The patient appears comfortable resting in bed. She is still on nasal cannula oxygen. Expresses concern about diminished exercise tolerance. Reason For Visit: PNEUMONIA,ACUTE HYHPOXIA RESPIRATORY FAILURE Physical Exam Vital Signs: Temp Pulse Resp BP Pulse Ox 98.5 F 77 20 117/78 93 03/28/20 08:00 03/28/20 08:00 03/28/20 08:00 03/28/20 08:00 03/28/20 08:00 Intake & Output 03/27/20 03/28/20 03/29/20 06:59 06:59 06:59 Intake Total 2262 1713 200 Output Total 1300 2 Balance 962 1711 200 Weight 68 kg 68 kg General appearance: PRESENT: no acute distress, cooperative, well-developed Head exam: PRESENT: atraumatic, normocephalic Eye exam: PRESENT: conjunctiva pink. ABSENT: scleral icterus Ear exam: PRESENT: normal external ear exam. ABSENT: bleeding, drainage Mouth exam: PRESENT: moist, tongue midline Neck exam: PRESENT: full ROM. ABSENT: carotid bruit, JVD, lymphadenopathy, thyromegaly, tracheostomy Respiratory exam: PRESENT: clear to auscultation kristin - Except for sparse wheeze, symmetrical, unlabored, wheezes - Sparse faint expiratory wheeze. ABSENT: accessory muscle use, rales, rhonchi, tachypnea Cardiovascular exam: PRESENT: RRR, +S1, +S2, systolic murmur - 2/6. ABSENT: bradycardia, diastolic murmur, irregular rhythm, tachycardia GI/Abdominal exam: PRESENT: normal bowel sounds, soft. ABSENT: distended, guarding, tenderness Rectal exam: PRESENT: deferred Gentrourinary exam: ABSENT: indwelling catheter Extremities exam: PRESENT: full ROM. ABSENT: pedal edema, tenderness Musculoskeletal exam: PRESENT: ambulatory, normal inspection. ABSENT: deformity, dislocation Neurological exam: PRESENT: alert, awake, oriented to person, oriented to place, oriented to time, oriented to situation, CN II-XII grossly intact. ABSENT: altered Psychiatric exam: PRESENT: appropriate affect. ABSENT: agitated, anxious Focused psych exam: ABSENT: delusional, paranoid, restlessness Skin exam: PRESENT: dry, normal color, warm. ABSENT: erythema, rash Results Laboratory Results: 03/28/20 04:36 03/25/20 06:20 03/28/20 04:36 WBC 19.1 H RBC 4.00 Hgb 11.5 L Hct 33.5 L MCV 84 MCH 28.9 MCHC 34.4 RDW 14.0 Plt Count 598 H 03/23/20 00:35 Blood Blood Culture - Final NO GROWTH IN 5 DAYS 03/22/20 23:40 Blood Blood Culture - Final NO GROWTH IN 5 DAYS 03/22/20 03/22/20 03/23/20 20:50 20:50 03:15 Creatine Kinase 158 H CK-MB (CK-2) 5.91 H Troponin I 0.049 0.041 NT-Pro-B Natriuret Pep 2080 H 03/23/20 03/23/20 11:26 18:52 Creatine Kinase CK-MB (CK-2) Troponin I 0.026 0.013 NT-Pro-B Natriuret Pep Impressions: Chest X-Ray 03/22/20 21:03 IMPRESSION: Patchy multifocal bilateral airspace disease, especially about both lung apices, suspicious for multifocal pneumonia/viral pneumonitis. Short interval follow-up to clearing is recommended to exclude a more sinister process. copyright 2011 [employer]- All Rights Reserved Chest/Abdomen CTA 03/23/20 00:00 IMPRESSION: 1. No pulmonary embolus. No aortic aneurysm or dissection. 2. Extensive ground-glass infiltrates as described. Concerning for atypical infectious/inflammatory process such as COVID-19. Assessment and Plan - Diagnosis (1) Pneumonia Qualifiers: Pneumonia type: due to unspecified organism Laterality: bilateral Lung location: unspecified part of lung Qualified Code(s): J18.9 - Pneumonia, unspecified organism Is this a current diagnosis for this admission?: Yes Plan: Chest x-ray positive for multifocal opacities. CTA chest is negative for pulmonary embolus. Reveals extensive extensive perihilar and peripheral groundglass opacities. Likely community-acquired pneumonia caused by gram-positive's including Streptococcus pneumonia. Blood cultures negative at 4 days Sputum culture pending; have not yet been obtained. COVID negative. Repeat COVID negative. Influenza negative. Legionella negative. D-dimer 2.41, Ferritin 196-> 1.70, CRP 365-> 83 Patient is admitted to the medical floor. She is empirically placed on IV Rocephin and doxycycline; Day #4. Received full dose Lovenox related to elevated d-dimer while ruling out COVID. His COVID has now been confirmed negative; transition to DVT prophylaxis Lovenox. Pulmonology is consulted; appreciate Dr. Aaron's evaluation and recommendations. (Discussed w/ Dr. Aaron today; will be available to see patient tomorrow). Provide supplemental oxygen as needed maintain saturations greater than 89%. Scheduled and as needed nebulizer treatments. IV dexamethasone; begin weaning Zinc, vitamin D, vitamin C, and melatonin supplementation. Encourage pulmonary toilet. Patient did note receive Remdesivir or convalescent serum. Continue current antibiotic therapy (2) Acute respiratory failure with hypoxia Is this a current diagnosis for this admission?: Yes Plan: Likely due to underlying bacterial pneumonia or COVID pneumonia complicated by underlying COPD. Discussed w/ Dr. Aaron; will see patient tomorrow. Greatly appreciate his assistance. Remaining evaluation and management as above. Will likely need oxygen at home. Walking oximetry studies ordered. Patient re ports longstanding debility from significantly decreased exercise capacity due to her COPD. (3) COPD (chronic obstructive pulmonary disease) Qualifiers: COPD type: COPD with acute exacerbation Qualified Code(s): J44.1 - Chronic obstructive pulmonary disease with (acute) exacerbation Is this a current diagnosis for this admission?: Yes Plan: Likely w/ undiagnosed COPD. History of tobacco abuse. Presenting with acute exacerbation. Will provide supplemental oxygen and BiPAP as needed to maintain saturations greater than 89%. Continue scheduled and as needed nebulizer treatments. Continue mucomyst nebs twice daily. Start Trelegy Steroid therapy; have begun weaning. Robitussin as needed. Pulmonary toilet is encouraged with incentive spirometer, flutter valve, and e caron ambulation. Pulmonology is consulted; appreciate Dr. Aaron's evaluation and recommendations. (Discussed w/ Dr. Aaron today; will be available to see patient tomorrow). Continue current regimen. Will benefit from pulmonary follow-up as an outpatient (4) Elevated troponin Is this a current diagnosis for this admission?: Yes Plan: Denies any history of CAD. Denies any anginal symptoms. EKG sinus rhythm with borderline T wave abnormalities, prolonged QT interval. Mildly elevated troponins; 0.049-> 0.041-> 0.026 No longer following. Likely due to demand mismatch. Monitor on telemetry Daily aspirin and statin therapy. Spoke with Dr. Jackson, no evidence of ACS. Agrees that elevated troponin is secondary to acute respiratory failure with hypoxia. 5 troponin levels were drawn. Started at 0.049 and have regressed to normal. (5) Hyperlipidemia Is this a current diagnosis for this admission?: Yes Plan: Diet and lifestyle modification recommended. Daily statin therapy. (6) Rheumatoid arthritis Qualifiers: Laterality: unspecified laterality Is this a current diagnosis for this admission?: Yes Plan: Holding Xeljanz secondary to community-acquired pneumonia. Denies any acute exacerbation. No joint swelling or significant inflammation. Continue home dose methadone. Monitor QTc interval. Outpatient PCP follow-up. Continue to hold Xeljanz but continue current methadone dose (7) Cigarette nicotine dependence Qualifiers: Substance use status: uncomplicated Qualified Code(s): F17.210 - Nicotine dependence, cigarettes, uncomplicated Is this a current diagnosis for this admission?: Yes Plan: Nicotine patch and encourage cessation - Time Time Spent with patient: 15-24 minutes Medications reviewed and adjusted accordingly: Yes Anticipated Discharge Disposition: Home, Self Care Anticipated Discharge Timeframe: within 72 hours
[2020-03-28] MEDS: CEFTRIAXONE 1 GM/D5W RTU 1 GM/50 ML RTUPB IV SCH (22:10)
[2020-03-28] MEDS: ATORVASTATIN CALCIUM 40 MG TABLET PO SCH (22:10)
[2020-03-29] MEDS: METHADONE HCL 10 MG TABLET PO SCH ×3 (05:28→21:24)
[2020-03-29] MEDS: DEXAMETHASONE 4 MG TABLET PO SCH ×2 (05:28→19:06)
[2020-03-29 06:13] LABS: ABSOLUTE BASOPHILS # (AUTO) 0.1 10^3/uL (0.0-0.2); ABSOLUTE LYMPHOCYTES (AUTO) 0.9 10^3/uL (0.5-4.7); ABSOLUTE NEUT (AUTO) 15.9 10^3/uL (1.7-8.2); BASOPHILS % (AUTO) 0.5 % (0-2); EOSINOPHILS % (AUTO) 0.1 % (0-6); HEMATOCRIT 31.1 % (36.0-47.0); HEMOGLOBIN 10.4 g/dL (12.0-15.5); LYMPHOCYTES % (AUTO) 5.3 % (13-45); MEAN CORPUSCULAR HEMOGLOBIN 28.2 pg (27.0-33.4); MEAN CORPUSCULAR HGB CONC 33.4 g/dL (32.0-36.0); MEAN CORPUSCULAR VOLUME 84 fl (80-97); MONOCYTES % (AUTO) 5.6 % (3-13); PLATELET COUNT 503 10^3/uL (150-450); RED BLOOD COUNT 3.68 10^6/uL (3.72-5.28); RED CELL DISTRIBUTION WIDTH 13.8 % (11.5-14.0); SEGMENTED NEUTROPHILS % (AUTO) 88.5 % (42-78); TOTAL CELLS COUNTED % (AUTO) 100 %
[2020-03-29 06:31] LABS: ALBUMIN 3.1 g/dL (3.5-5.0); ALKALINE PHOSPHATASE 119 U/L (38-126); ANION GAP 11 (5-19); ASPARTATE AMINO TRANSFERASE 31 U/L (14-36); BILIRUBIN,DIRECT 0.4 mg/dL (0.0-0.4); BILIRUBIN,TOTAL 0.4 mg/dL (0.2-1.3); BLOOD UREA NITROGEN 22 mg/dL (7-20); CARBON DIOXIDE 21 mmol/L (22-30); CHLORIDE 102 mmol/L (98-107); GLUCOSE 127 mg/dL (75-110)
[2020-03-29 06:34] LABS: POTASSIUM 4.4 mmol/L (3.6-5.0)
[2020-03-29] MEDS: IPRATROPIUM/ALBUTEROL 0.5-2.5 MG/3 ML AMPUL NEB SCH ×3 (07:49→20:31)
[2020-03-29] MEDS: ACETYLCYSTEINE 20% SOLN 800 MG/4 ML VIAL.NEB NEB SCH ×2 (07:49→20:30)
--- NOTE | 2020-03-29 10:09 | PDOC DISCHARGE SUMMARY ---
Impression - Admit/DC Date/PCP Admission Date/Primary Care Provider: 03/23/20 00:01 GONZÁLEZ CALLE MD Discharge Date: 03/29/20 - Discharge Diagnosis (1) Pneumonia Is this a current diagnosis for this admission?: Yes (2) Acute respiratory failure with hypoxia Is this a current diagnosis for this admission?: Yes (3) COPD (chronic obstructive pulmonary disease) Is this a current diagnosis for this admission?: Yes (4) Elevated troponin Is this a current diagnosis for this admission?: Yes (5) Hyperlipidemia Is this a current diagnosis for this admission?: Yes (6) Rheumatoid arthritis Is this a current diagnosis for this admission?: Yes (7) Cigarette nicotine dependence Is this a current diagnosis for this admission?: Yes - Additional Information Discharge Diet: Cardiac Discharge Activity: Balance Activity w/Rest, Energy Conservation Referrals: GONZÁLEZ CALLE MD [Primary Care Provider] - 04/10/20 11:00 am Prescriptions: Ipratropium/Albuterol Sulfate [Duoneb 3 ml Ampul] 3 ml NEB Q6 30 Days #150 vial.neb Dexamethasone [Hidex] 1.5 mg PO ASDIR #1 tab.ds.pk Atorvastatin Calcium [Lipitor 40 mg Tablet] 40 mg PO QHS 30 Days #30 tablet Lisinopril 20 mg PO Q12 30 Days #60 tablet Doxycycline Monohydrate [Monodox] 100 mg PO Q12 7 Days #14 capsule Potassium Chloride 20 meq PO BID #60 tab.er.prt Fluticasone/Umeclidin/Vilanter [Trelegy 100-62.5-25 Mcg Ellipta 14 Dose/Dpi] 1 inh IH DAILY #1 inhaler Home Medications: Estradiol 1 mg PO DAILY 09/15/17 Diazepam [Valium 5 mg Tablet] 5 mg PO BIDP PRN 03/23/20 Fluoxetine HCl [Prozac] 40 mg PO DAILY 03/23/20 Methadone HCl [Dolophine 10 mg Tablet] 10 mg PO QID 03/23/20 Tofacitinib Citrate [Xeljanz Xr] 11 mg PO DAILY 03/23/20 Aspirin [Aspirin 81 mg Chewable Tablet] 81 mg PO DAILY tab.chew 03/29/20 Atorvastatin Calcium [Lipitor 40 mg Tablet] 40 mg PO QHS 30 Days #30 tablet 03/29/20 Dexamethasone [Hidex] 1.5 mg PO ASDIR #1 tab.ds.pk 03/29/20 Doxycycline Monohydrate [Monodox] 100 mg PO Q12 7 Days #14 capsule 03/29/20 Fluticasone/Umeclidin/Vilanter [Trelegy 100-62.5-25 Mcg Ellipta 14 Dose/Dpi] 1 inh IH DAILY #1 inhaler 03/29/20 Guaifenesin [Mucinex Sr 600 mg Tablet.sa] 600 mg PO Q12 tablet.sa 03/29/20 Guaifenesin/Codeine Phos [Robitussin-AC Liquid 5 ml Udcup] 5 ml PO QIDP PRN udc 03/29/20 Ipratropium/Albuterol Sulfate [Duoneb 3 ml Ampul] 3 ml NEB Q6 30 Days #150 vial.neb 03/29/20 Lisinopril 20 mg PO Q12 30 Days #60 tablet 03/29/20 Nicotine [Nicoderm 14 mg/24 Hr Transdermal Patch] 1 each TD DAILY patch.td24 03/29/20 Potassium Chloride 20 meq PO BID #60 tab.er.prt 03/29/20 Zinc Sulfate [Zinc-220 Capsule] 220 mg PO DAILY capsule 03/29/20 History of Present Illiness History of Present Illness: ADELAIDA SIMON is a 65 year old female past medical history of non-oxygen dependent COPD, nephrolithiasis, rheumatoid arthritis, presenting to ED complaining of worsening shortness of breath. Patient has been having difficulty breathing for the last 2 days, patient has chronic shortness of b reath at baseline but does not use any oxygen, does have history of COPD, but for the last 3 days shortness of breath has been worsening associated with nonproductive cough cough, denies any fever, chills, loss of smell, diarrhea, abdominal pain, any exposure to anybody with COVID-19. In ED she was noted to be significantly hypoxic, mildly elevated troponins, elevated inflammatory markers, and chest x-ray positive for patchy multifocal bilateral airspace disease suspicion for multifocal pneumonia or viral pneumonitis. Patient was started on broad-spectrum empiric IV antibiotics and hospitalist consulted for admission. Hospital Course Hospital Course: The patient had a slow hospital course. With her underlying COPD she will require chronic oxygen therapy despite resolution of the pneumonia. At this point she will complete her antibiotic therapy and taper the steroids to off. She does have limited exercise capacity but states that she has practically been invalid at home for many months. With aggressive nebulizer treatments in addition to antibiotics she has shown improvement albeit slowly. White blood cell count is still elevated however I believe this is due to steroid therapy. Physical Exam Vital Signs: Temp Pulse Resp BP Pulse Ox 98.0 F 64 16 133/80 H 94 03/29/20 05:18 03/29/20 07:49 03/29/20 07:49 03/29/20 05:18 03/29/20 08:03 Pulse Oximeter Ambulatory Start: 03/28/20 11:48 Freq: RTBID Status: Active Protocol: Document 03/29/20 08:59 [facility] (Rec: 03/29/20 09:08 [facility] [id number]) Exercise Oximetry Treatment Ambulating SpO2 Charge Now Yes Oxygen Delivery Method Nasal Cannula Oxygen Flow Rate (L/min) 6 Recovery O2 Saturation by Pulse Oximetry 92 Pulse Rate 93 Respiratory Rate 18 Exercise O2 Saturation by Pulse Oximetry 87 Pulse Rate 93 Respiratory Rate 18 Resting O2 Saturation by Pulse Oximetry 92 Pulse Rate 3 Respiratory Rate 18 Oximetry Exercise Interval (min) 1 Ambulation Distance (ft) 6 Exercise Tolerance Fair Additional RT Notes Other Patient was initially on NC 3lpm @ rest with 02 saturation 92%/HR92 Placed on RA @ rest with 02 saturation 83%/87HR Placed on NC 3lpm and walked 3 feet 85%/102HR, increased to 4lpm @ rest 86%/98, finally increased to 6lpm @ rest 90%/ 81. Patient was able to walk another 6 feet with 02 saturation decreasing to 87%/ 93HR. Intake & Output 03/28/20 03/29/20 03/30/20 06:59 06:59 06:59 Intake Total 1713 1550 Output Total 2 1 Balance 1711 1549 Weight 68 kg 69.2 kg General appearance: PRESENT: no acute distress, cooperative, well-developed Head exam: PRESENT: atraumatic, normocephalic Ear exam: PRESENT: normal external ear exam. ABSENT: bleeding, drainage Mouth exam: PRESENT: moist, tongue midline Respiratory exam: PRESENT: prolonged expiratory phas, symmetrical, unlabored, wheezes - Faint occasional expiratory wheeze. ABSENT: rales, rhonchi, tachypnea Cardiovascular exam: PRESENT: RRR, +S1, +S2. ABSENT: bradycardia, diastolic murmur, irregular rhythm, systolic murmur, tachycardia GI/Abdominal exam: PRESENT: normal bowel sounds, soft. ABSENT: distended, guarding, tenderness Rectal exam: PRESENT: deferred Gentrourinary exam: ABSENT: indwelling catheter Extremities exam: ABSENT: pedal edema Musculoskeletal exam: PRESENT: ambulatory - Limited by hypoxia. ABSENT: deformity, dislocation Neurological exam: PRESENT: alert, awake, oriented to person, oriented to place, oriented to time, oriented to situation, CN II-XII grossly intact. ABSENT: altered Psychiatric exam: PRESENT: appropriate affect. ABSENT: agitated, anxious Focused psych exam: ABSENT: delusional, paranoid, restlessness Skin exam: PRESENT: dry, normal color, warm. ABSENT: rash Results Laboratory Results: WBC 18.0 10^3/uL (4.0-10.5) H 03/29/20 05:37 RBC 3.68 10^6/uL (3.72-5.28) L 03/29/20 05:37 Hgb 10.4 g/dL (12.0-15.5) L 03/29/20 05:37 Hct 31.1 % (36.0-47.0) L 03/29/20 05:37 MCV 84 fl (80-97) 03/29/20 05:37 MCH 28.2 pg (27.0-33.4) 03/29/20 05:37 MCHC 33.4 g/dL (32.0-36.0) 03/29/20 05:37 RDW 13.8 % (11.5-14.0) 03/29/20 05:37 Plt Count 503 10^3/uL (150-450) H 03/29/20 05:37 Lymph % (Auto) 5.3 % (13-45) L 03/29/20 05:37 Holt % (Auto) 5.6 % (3-13) 03/29/20 05:37 Eos % (Auto) 0.1 % (0-6) 03/29/20 05:37 Baso % (Auto) 0.5 % (0-2) 03/29/20 05:37 Absolute Neuts (auto) 15.9 10^3/uL (1.7-8.2) H 03/29/20 05:37 Absolute Lymphs (auto) 0.9 10^3/uL (0.5-4.7) 03/29/20 05:37 Absolute Monos (auto) 1.0 10^3/uL (0.1-1.4) 03/29/20 05:37 Absolute Eos (auto) 0.0 10^3/uL (0.0-0.6) 03/29/20 05:37 Absolute Basos (auto) 0.1 10^3/uL (0.0-0.2) 03/29/20 05:37 Total Counted 100 03/24/20 04:25 Seg Neutrophils % 88.5 % (42-78) H 03/29/20 05:37 Seg Neuts % (Manual) 90 % (42-78) H 03/24/20 04:25 Lymphocytes % (Manual) 5 % (13-45) L 03/24/20 04:25 Monocytes % (Manual) 5 % (3-13) 03/24/20 04:25 Eosinophils % (Manual) 0 % (0-6) 03/24/20 04:25 Basophils % (Manual) 0 % (0-2) 03/24/20 04:25 Abs Neuts (Manual) 13.6 10^3/uL (1.7-8.2) H 03/24/20 04:25 Abs Lymphs (Manual) 0.8 10^3/uL (0.5-4.7) 03/24/20 04:25 Abs Monocytes (Manual) 0.8 10^3/uL (0.1-1.4) 03/24/20 04:25 Absolute Eos (Manual) 0.0 10^3/uL (0.0-0.6) 03/24/20 04:25 Abs Basophils (Manual) 0.0 10^3/uL (0.0-0.2) 03/24/20 04:25 Platelet Comment INCREASED 03/24/20 04:25 RBC Morph Comment NORMO-CYTIC/CHROMIC 03/24/20 04:25 PT 27.0 SEC (11.4-15.4) H 03/26/20 06:49 INR 2.50 03/26/20 06:49 D-Dimer 2.41 ug/mL (0.00-0.50) H 03/23/20 03:15 Carbonic Acid 1.13 mmol/L (1.05-1.35) 03/25/20 08:50 HCO3/H2CO3 Ratio 19:1 03/25/20 08:50 ABG pH 7.39 (7.35-7.45) 03/25/20 08:50 ABG pCO2 37.4 mmHg (35-45) 03/25/20 08:50 ABG pO2 100.6 mmHg (80-100) H 03/25/20 08:50 ABG HCO3 21.9 mmol/L (20-24) 03/25/20 08:50 ABG Total CO2 23.1 mmol/L (21-25) 03/25/20 08:50 ABG O2 Saturation 97.6 % (94-98) 03/25/20 08:50 ABG Base Excess -2.6 mmol/L 03/25/20 08:50 VBG pH 7.38 (7.30-7.42) 03/22/20 23:40 VBG pCO2 41.1 mmHg (35-63) 03/22/20 23:40 VBG HCO3 24.0 mmol/L (20-32) 03/22/20 23:40 VBG Base Excess -1.0 mmol/L 03/22/20 23:40 FiO2 44% 03/25/20 08:50 Sodium 134.1 mmol/L (137-145) L 03/29/20 05:37 Potassium 4.4 mmol/L (3.6-5.0) 03/29/20 05:37 Chloride 102 mmol/L (98-107) 03/29/20 05:37 Carbon Dioxide 21 mmol/L (22-30) L 03/29/20 05:37 Anion Gap 11 (5-19) 03/29/20 05:37 BUN 22 mg/dL (7-20) H 03/29/20 05:37 Creatinine 0.53 mg/dL (0.52-1.25) 03/29/20 05:37 Est GFR ( Amer) > 60 (>60) 03/29/20 05:37 Est GFR (MDRD) Non-Af > 60 (>60) 03/29/20 05:37 Glucose 127 mg/dL (75-110) H 03/29/20 05:37 Hemoglobin A1c % 5.9 % (4.7-6.0) 03/24/20 04:25 Calcium 9.0 mg/dL (8.4-10.2) 03/29/20 05:37 Phosphorus 4.8 mg/dL (2.5-4.5) H 03/24/20 04:25 Magnesium 2.0 mg/dL (1.6-2.3) 03/29/20 05:37 Ferritin 170.00 ng/mL (11.1-264.0) 03/25/20 06:20 Total Bilirubin 0.4 mg/dL (0.2-1.3) 03/29/20 05:37 Direct Bilirubin 0.4 mg/dL (0.0-0.4) 03/29/20 05:37 Neonat Total Bilirubin Not Reportable 03/29/20 05:37 Neonat Direct Bilirubin Not Reportable 03/29/20 05:37 Neonat Indirect Bili Not Reportable 03/29/20 05:37 AST 31 U/L (14-36) 03/29/20 05:37 ALT 26 U/L (<35) 03/29/20 05:37 Alkaline Phosphatase 119 U/L (38-126) 03/29/20 05:37 Creatine Kinase 158 U/L (30-135) H 03/22/20 20:50 CK-MB (CK-2) 5.91 ng/mL (<4.55) H 03/22/20 20:50 Troponin I 0.013 ng/mL 03/23/20 18:52 C-Reactive Protein 83.0 mg/L (<10.0) H 03/25/20 06:20 NT-Pro-B Natriuret Pep 2080 pg/mL (<125) H 03/22/20 20:50 Total Protein 6.0 g/dL (6.3-8.2) L 03/29/20 05:37 Albumin 3.1 g/dL (3.5-5.0) L 03/29/20 05:37 Triglycerides 97 mg/dL (<150) 03/23/20 03:15 Cholesterol 316.06 mg/dL (0-200) H 03/23/20 03:15 LDL Cholesterol Direct 252 mg/dL (<100) H 03/23/20 03:15 VLDL Cholesterol 19.0 mg/dL (10-31) 03/23/20 03:15 HDL Cholesterol 44 mg/dL (>40) 03/23/20 03:15 TSH 0.67 uIU/mL (0.47-4.68) 03/24/20 04:25 Free T4 1.32 ng/dL (0.78-2.19) 03/24/20 04:25 Urine Color MACKENZIE 03/23/20 11:09 Urine Appearance CLOUDY 03/23/20 11:09 Urine pH 5.0 (5.0-9.0) 03/23/20 11:09 Ur Specific Brielle 1.023 03/23/20 11:09 Urine Protein >=500 mg/dL (NEGATIVE) H 03/23/20 11:09 Urine Glucose (UA) NEGATIVE mg/dL (NEGATIVE) 03/23/20 11:09 Urine Ketones 20 mg/dL (NEGATIVE) H 03/23/20 11:09 Urine Blood SMALL (NEGATIVE) H 03/23/20 11:09 Urine Nitrite POSITIVE (NEGATIVE) H 03/23/20 11:09 Urine Bilirubin NEGATIVE (NEGATIVE) 03/23/20 11:09 Urine Urobilinogen 2.0 mg/dL (<2.0) H 03/23/20 11:09 Ur Leukocyte Esterase TRACE (NEGATIVE) H 03/23/20 11:09 Urine WBC (Auto) 18 /HPF 03/23/20 11:09 Urine RBC (Auto) 9 /HPF 03/23/20 11:09 Urine Bacteria (Auto) TRACE /HPF 03/23/20 11:09 Squamous Epi Cells Auto 33 /HPF 03/23/20 11:09 Urine Mucus (Auto) MANY /LPF 03/23/20 11:09 Urine Ascorbic Acid 40 (NEGATIVE) H 03/23/20 11:09 COVID-19 Source See comment 03/24/20 14:30 COVID-19 (RUSLAN) Not Detected (Not Detect) 03/24/20 14:30 Influenza A (Rapid) NEGATIVE (NEGATIVE) 03/24/20 16:45 Influenza B (Rapid) NEGATIVE (NEGATIVE) 03/24/20 16:45 03/22/20 03/23/20 03/23/20 20:50 03:15 11:26 CK-MB (CK-2) 5.91 H Troponin I 0.049 0.041 0.026 NT-Pro-B Natriuret Pep 2080 H 09/24/20 18:52 CK-MB (CK-2) Troponin I 0.013 NT-Pro-B Natriuret Pep Impressions: Chest X-Ray 03/22/20 21:03 IMPRESSION: Patchy multifocal bilateral airspace disease, especially about both lung apices, suspicious for multifocal pneumonia/viral pneumonitis. Short interval follow-up to clearing is recommended to exclude a more sinister process. copyright 2010 [employer]- All Rights Reserved Chest/Abdomen CTA 03/23/20 00:00 IMPRESSION: 1. No pulmonary embolus. No aortic aneurysm or dissection. 2. Extensive ground-glass infiltrates as described. Concerning for atypical infectious/inflammatory process such as COVID-19. Plan Health Concerns: Patient with severe COPD. She will now be established with Dr. Aaron and follow-up as an outpatient. Hopefully she will continue tobacco cessation. She will resume Trelegy but also slowly taper off of scheduled duo nebs to a point where hopefully they will be as needed only. Plan of Treatment: Initiate medications as noted above. Complete antibiotic therapy as an outpatient. Goals: Improve exercise capacity despite underlying severe COPD. Establishing continue to follow with pulmonology. At some point she may benefit from pulmonary rehab but at this point I believe she is too weak. Pulmonology can make a referral as she improves. Time Spent: Greater than 30 Minutes Stroke Is this a Stroke Patient?: No Acute Heart Failure Is this a Heart Failure Patient?: No
[2020-03-29] MEDS: DOXYCYCLINE HYCLATE 100 MG in DEXTROSE 5%-WATER 250 ML IV SCH ×2 (11:55→21:24)
[2020-03-29] MEDS: ASCORBIC ACID 500 MG TABLET PO SCH ×2 (11:58→19:06)
[2020-03-29] MEDS: ASPIRIN 81 MG TABLET, CHEWABLE PO SCH (11:58)
[2020-03-29] MEDS: ZINC SULFATE 220 MG CAPSULE PO SCH (11:59)
[2020-03-29] MEDS: FAMOTIDINE 20 MG TABLET PO SCH ×2 (11:59→21:25)
[2020-03-29] MEDS: FLUOXETINE HCL 20 MG CAPSULE PO SCH (11:59)
[2020-03-29] MEDS: GUAIFENESIN 600 MG TABLET.SA PO SCH ×2 (11:59→21:24)
[2020-03-29] MEDS: DOCUSATE SODIUM 100 MG CAPSULE PO SCH ×2 (11:59→19:06)
[2020-03-29] MEDS: LISINOPRIL 10 MG TABLET PO SCH (12:02)
[2020-03-29] MEDS: NICOTINE 14 MG/24 HR PATCH.TD24 TD SCH (12:02)
[2020-03-29] MEDS: ENOXAPARIN SODIUM INJ 40 MG/0.4 ML DISP.SYRIN SUBCUT SCH (12:03)
[2020-03-29] MEDS: FLUTICASONE/UMECLIDIN/VILANTER 100-62.5-25 MCG/DOSE IH SCH (12:08)
--- NOTE | 2020-03-29 12:51 | PDOC CONSULTATION ---
Consultation Consult Date: 03/28/20 Provider Consulted: ERIC TURNER History of Present Illness Admission Date/PCP: 03/23/20 00:01 GONZÁLEZ CALLE MD Patient complains of: Redness of breath. History of Present Illness: ADELAIDA SIMON is a 65 year old female Who presents with increasing dyspnea and shortness of breath. Patient gives a very interesting history she states that approximately 3 weeks ago she visited a family member in [place]. She felt as if she was getting sick in [facility] with increasing dyspnea and shortness of breath. She drove back to [place] where her symptoms of breathlessness persisted. Interestingly she did not have fever loss of sense of smell or taste or any exposure to anyone that she was aware of that had COVID-19. She ultimately presented to the emergency room where she was found to be hypoxic with pulmonary infiltrates on chest x-ray and subsequent CT scan. She was admitted to the hospital for treatment. This patient does have a long and significant history of cigarette smoking smoking as much as 2 packs/day she smoked up until the time she was admitted to the hospital. She denies much in the way of cough or mucus production. Past Medical History Cardiac Medical History: Denies: Coronary Artery Disease, Myocardial Infarction, Hypertension Pulmonary Medical History: Reports: Chronic Obstructive Pulmonary Disease (COPD) Denies: Asthma, Bronchitis, Pneumonia Neurological Medical History: Denies: Seizures GI Medical History: Denies: Hepatitis, Hiatal Hernia Musculoskeltal Medical History: Reports: Arthritis - rheumatoid Psychiatric Medical History: Reports: Depression Hematology: Denies: Anemia, Sickle Cell Disease Past Surgical History Past Surgical History: Reports: Hysterectomy Denies: Amputation, Mastectomy, Pacemaker Social History Lives with: Family Smoking Status: Current Every Day Smoker Family History Family History: None, Reviewed & Not Pertinent Parental Family History Reviewed: No Children Family History Reviewed: No Sibling(s) Family History Reviewed.: No Medication/Allergy Home Medications: Estradiol 1 mg PO DAILY 09/15/17 Diazepam [Valium 5 mg Tablet] 5 mg PO BIDP PRN 03/23/20 Fluoxetine HCl [Prozac] 40 mg PO DAILY 03/23/20 Methadone HCl [Dolophine 10 mg Tablet] 10 mg PO QID 03/23/20 Tofacitinib Citrate [Xeljanz Xr] 11 mg PO DAILY 03/23/20 Aspirin [Aspirin 81 mg Chewable Tablet] 81 mg PO DAILY tab.chew 03/29/20 Atorvastatin Calcium [Lipitor 40 mg Tablet] 40 mg PO QHS 30 Days #30 tablet 03/29/20 Dexamethasone [Hidex] 1.5 mg PO ASDIR #1 tab.ds.pk 03/29/20 Doxycycline Monohydrate [Monodox] 100 mg PO Q12 7 Days #14 capsule 03/29/20 Fluticasone/Umeclidin/Vilanter [Trelegy 100-62.5-25 Mcg Ellipta 14 Dose/Dpi] 1 inh IH DAILY #1 inhaler 03/29/20 Guaifenesin [Mucinex Sr 600 mg Tablet.sa] 600 mg PO Q12 tablet.sa 03/29/20 Guaifenesin/Codeine Phos [Robitussin-AC Liquid 5 ml Udcup] 5 ml PO QIDP PRN udc 03/29/20 Ipratropium/Albuterol Sulfate [Duoneb 3 ml Ampul] 3 ml NEB Q6 30 Days #150 vial.neb 03/29/20 Lisinopril 20 mg PO Q12 30 Days #60 tablet 03/29/20 Nicotine [Nicoderm 14 mg/24 Hr Transdermal Patch] 1 each TD DAILY patch.td24 03/29/20 Potassium Chloride 20 meq PO BID #60 tab.er.prt 03/29/20 Zinc Sulfate [Zinc-220 Capsule] 220 mg PO DAILY capsule 03/29/20 Allergies/Adverse Reactions: Sulfa (Sulfonamide Antibiotics) Allergy (Intermediate, Verified 09/15/17 09:17) Hives Review of Systems Nose, Mouth, and Throat: PRESENT: as per HPI Cardiovascular: PRESENT: as per HPI Respiratory: PRESENT: as per HPI Physical Exam Vital Signs: Temp Pulse Resp BP Pulse Ox 98.1 F 75 20 91/57 L 94 03/29/20 09:19 03/29/20 09:19 03/29/20 09:19 03/29/20 09:19 03/29/20 09:19 Pulse Oximeter Ambulatory Start: 03/28/20 11:48 Freq: RTBID Status: Active Protocol: Document 03/29/20 08:59 [facility] (Rec: 03/29/20 09:08 [facility] [id number]) Exercise Oximetry Treatment Ambulating SpO2 Charge Now Yes Oxygen Delivery Method Nasal Cannula Oxygen Flow Rate (L/min) 6 Recovery O2 Saturation by Pulse Oximetry 92 Pulse Rate 93 Respiratory Rate 18 Exercise O2 Saturation by Pulse Oximetry 87 Pulse Rate 93 Respiratory Rate 18 Resting O2 Saturation by Pulse Oximetry 92 Pulse Rate 3 Respiratory Rate 18 Oximetry Exercise Interval (min) 1 Ambulation Distance (ft) 6 Exercise Tolerance Fair Additional RT Notes Other Patient was initially on NC 3lpm @ rest with 02 saturation 92%/HR92 Placed on RA @ rest with 02 saturation 83%/87HR Placed on NC 3lpm and walked 3 feet 85%/102HR, increased to 4lpm @ rest 86%/98, finally increased to 6lpm @ rest 90%/ 81. Patient was able to walk another 6 feet with 02 saturation decreasing to 87%/ 93HR. Intake & Output 03/28/20 03/29/20 03/30/20 06:59 06:59 06:59 Intake Total 1713 1550 Output Total 2 1 Balance 1711 1549 Weight 68 kg 69.2 kg General appearance: PRESENT: mild distress Head exam: PRESENT: atraumatic, normocephalic Mouth exam: PRESENT: moist, tongue midline Neck exam: ABSENT: carotid bruit, JVD, lymphadenopathy, thyromegaly Respiratory exam: PRESENT: decreased breath sounds - Breath sounds were moderately diminished throughout all lung goodson. Faint wheezes were appreciated. Results Laboratory Results: 03/29/20 05:37 03/29/20 05:37 03/29/20 03/29/20 05:37 05:37 WBC 18.0 H RBC 3.68 L Hgb 10.4 L Hct 31.1 L MCV 84 MCH 28.2 MCHC 33.4 RDW 13.8 Plt Count 503 H Seg Neutrophils % 88.5 H Sodium 134.1 L Potassium 4.4 Chloride 102 Carbon Dioxide 21 L Anion Gap 11 BUN 22 H Creatinine 0.53 Est GFR ( Amer) > 60 Glucose 127 H Calcium 9.0 Magnesium 2.0 Total Bilirubin 0.4 AST 31 Alkaline Phosphatase 119 Total Protein 6.0 L Albumin 3.1 L 03/22/20 03/22/20 03/23/20 20:50 20:50 03:15 Creatine Kinase 158 H CK-MB (CK-2) 5.91 H Troponin I 0.049 0.041 NT-Pro-B Natriuret Pep 2080 H 03/23/20 03/23/20 11:26 18:52 Creatine Kinase CK-MB (CK-2) Troponin I 0.026 0.013 NT-Pro-B Natriuret Pep Impressions: Chest X-Ray 03/22/20 21:03 IMPRESSION: Patchy multifocal bilateral airspace disease, especially about both lung apices, suspicious for multifocal pneumonia/viral pneumonitis. Short interval follow-up to clearing is recommended to exclude a more sinister process. copyright 2010 [employer]- All Rights Reserved Chest/Abdomen CTA 03/23/20 00:00 IMPRESSION: 1. No pulmonary embolus. No aortic aneurysm or dissection. 2. Extensive ground-glass infiltrates as described. Concerning for atypical infectious/inflammatory process such as COVID-19. Status: Image reviewed by me - I did review her CAT scans which showed a diffuse primarily apical infiltrative process. I think the appearance is somewhat distorted by the underlying emphysematous changes in this patient's lung. Assessment & Plan - Diagnosis (1) Acute respiratory failure with hypoxia Is this a current diagnosis for this admission?: Yes (2) COPD (chronic obstructive pulmonary disease) Qualifiers: COPD type: COPD with acute exacerbation Qualified Code(s): J44.1 - Chronic obstructive pulmonary disease with (acute) exacerbation Is this a current diagnosis for this admission?: Yes (3) Pneumonia Qualifiers: Pneumonia type: due to unspecified organism Laterality: bilateral Lung location: unspecified part of lung Qualified Code(s): J18.9 - Pneumonia, unspecified organism Is this a current diagnosis for this admission?: Yes - Plan Summary Plan Summary: This patient has a very interesting radiographic appearance for what appears to be likely an underlying infectious process. CT scan reveals diffuse infiltrates primarily in the apices and upper lung zones that are somewhat distorted by her underlying emphysematous changes. I think continued antibiotic therapy as you are doing is appropriate. It is likely that this represents an underlying infectious process. However, we cannot rule out other significant illness particularly cancer as in bronchioloalveolar cell carcinoma, inhalational lung injury, autoimmune pulmonary disease, or atypical infectious organisms. Given this patient's mild symptoms I think the appropriate course is to finish a course of antibiotics and follow a serial CT scan of her lungs. If indeed this is a acute infectious process it will resolve over time. If this infiltrative process fails to resolve we will need to proceed with some sort of diagnostic testing likely to be lung biopsy either by transbronchial approach or by thoracoscopy. I will follow with you during this patient's hospitalization but most importantly will follow-up as an outpatient.
[2020-03-29] MEDS: CEFTRIAXONE 1 GM/D5W RTU 1 GM/50 ML RTUPB IV SCH (21:21)
[2020-03-29] MEDS: ATORVASTATIN CALCIUM 40 MG TABLET PO SCH (21:24)
[2020-03-30] MEDS: DEXAMETHASONE 4 MG TABLET PO SCH (05:38)
[2020-03-30] MEDS: METHADONE HCL 10 MG TABLET PO SCH (05:38)
[2020-03-30] MEDS: IPRATROPIUM/ALBUTEROL 0.5-2.5 MG/3 ML AMPUL NEB SCH ×2 (08:00→14:23)
[2020-03-30] MEDS: ACETYLCYSTEINE 20% SOLN 800 MG/4 ML VIAL.NEB NEB SCH (08:00)
[2020-03-30] MEDS: LISINOPRIL 10 MG TABLET PO SCH (09:26)
[2020-03-30] MEDS: GUAIFENESIN 600 MG TABLET.SA PO SCH (09:27)
[2020-03-30] MEDS: ASCORBIC ACID 500 MG TABLET PO SCH (09:27)
[2020-03-30] MEDS: DOCUSATE SODIUM 100 MG CAPSULE PO SCH (09:27)
[2020-03-30] MEDS: ZINC SULFATE 220 MG CAPSULE PO SCH (09:27)
[2020-03-30] MEDS: ASPIRIN 81 MG TABLET, CHEWABLE PO SCH (09:27)
[2020-03-30] MEDS: FLUOXETINE HCL 20 MG CAPSULE PO SCH (09:27)
[2020-03-30] MEDS: FAMOTIDINE 20 MG TABLET PO SCH (09:28)
[2020-03-30] MEDS: ENOXAPARIN SODIUM INJ 40 MG/0.4 ML DISP.SYRIN SUBCUT SCH (09:28)
[2020-03-30] MEDS: FLUTICASONE/UMECLIDIN/VILANTER 100-62.5-25 MCG/DOSE IH SCH (09:31)
--- NOTE | 2020-03-30 09:31 | PDOC PROGRESS REPORT ---
Subjective Progress Note for:: 03/30/20 Subjective:: The patient has no complaints. She should be able to have the home oxygen set up today. She is anxious to discharged home. Reason For Visit: PNEUMONIA,ACUTE HYHPOXIA RESPIRATORY FAILURE Physical Exam Vital Signs: Temp Pulse Resp BP Pulse Ox 97.4 F 60 16 102/79 90 L 03/30/20 09:02 03/30/20 08:00 03/30/20 08:00 03/30/20 03:41 03/30/20 08:00 Pulse Oximeter Ambulatory Start: 03/28/20 11:48 Freq: RTBID Status: Active Protocol: Document 03/29/20 08:59 [facility] (Rec: 03/29/20 09:08 [facility] [id number]) Exercise Oximetry Treatment Ambulating SpO2 Charge Now Yes Oxygen Delivery Method Nasal Cannula Oxygen Flow Rate (L/min) 6 Recovery O2 Saturation by Pulse Oximetry 92 Pulse Rate 93 Respiratory Rate 18 Exercise O2 Saturation by Pulse Oximetry 87 Pulse Rate 93 Respiratory Rate 18 Resting O2 Saturation by Pulse Oximetry 92 Pulse Rate 3 Respiratory Rate 18 Oximetry Exercise Interval (min) 1 Ambulation Distance (ft) 6 Exercise Tolerance Fair Additional RT Notes Other Patient was initially on NC 3lpm @ rest with 02 saturation 92%/HR92 Placed on RA @ rest with 02 saturation 83%/87HR Placed on NC 3lpm and walked 3 feet 85%/102HR, increased to 4lpm @ rest 86%/98, finally increased to 6lpm @ rest 90%/ 81. Patient was able to walk another 6 feet with 02 saturation decreasing to 87%/ 93HR. Intake & Output 03/29/20 03/30/20 03/31/20 06:59 06:59 06:59 Intake Total 1550 1166 Output Total 1 4 Balance 1549 1162 Weight 69.2 kg 69.3 kg General appearance: PRESENT: no acute distress, cooperative, well-developed Respiratory exam: PRESENT: prolonged expiratory phas, rales - Faint rales at bases, symmetrical, unlabored, wheezes - Occasional faint expiratory wheeze. ABSENT: rhonchi, tachypnea Cardiovascular exam: PRESENT: RRR, +S1, +S2, systolic murmur - 2/6. ABSENT: bradycardia, diastolic murmur, irregular rhythm, tachycardia GI/Abdominal exam: PRESENT: normal bowel sounds, soft. ABSENT: distended, tenderness Rectal exam: PRESENT: deferred Extremities exam: ABSENT: pedal edema Musculoskeletal exam: PRESENT: ambulatory, normal inspection. ABSENT: deformity, dislocation Neurological exam: PRESENT: alert, awake, oriented to person, oriented to place, oriented to time, oriented to situation, CN II-XII grossly intact. ABSENT: altered Psychiatric exam: PRESENT: appropriate affect. ABSENT: agitated, anxious Results Laboratory Results: 03/29/20 05:37 03/29/20 05:37 03/22/20 03/22/20 03/23/20 20:50 20:50 03:15 Creatine Kinase 158 H CK-MB (CK-2) 5.91 H Troponin I 0.049 0.041 NT-Pro-B Natriuret Pep 2080 H 03/23/20 03/23/20 11:26 18:52 Creatine Kinase CK-MB (CK-2) Troponin I 0.026 0.013 NT-Pro-B Natriuret Pep Impressions: Chest X-Ray 03/22/20 21:03 IMPRESSION: Patchy multifocal bilateral airspace disease, especially about both lung apices, suspicious for multifocal pneumonia/viral pneumonitis. Short interval follow-up to clearing is recommended to exclude a more sinister process. copyright 2011 [employer]- All Rights Reserved Chest/Abdomen CTA 03/23/20 00:00 IMPRESSION: 1. No pulmonary embolus. No aortic aneurysm or dissection. 2. Extensive ground-glass infiltrates as described. Concerning for atypical infectious/inflammatory process such as COVID-19. Assessment and Plan - Diagnosis (1) Pneumonia Qualifiers: Pneumonia type: due to unspecified organism Laterality: bilateral Lung location: unspecified part of lung Qualified Code(s): J18.9 - Pneumonia, unspecified organism Is this a current diagnosis for this admission?: Yes (2) Acute respiratory failure with hypoxia Is this a current diagnosis for this admission?: Yes (3) COPD (chronic obstructive pulmonary disease) Qualifiers: COPD type: COPD with acute exacerbation Qualified Code(s): J44.1 - Chronic obstructive pulmonary disease with (acute) exacerbation Is this a current diagnosis for this admission?: Yes (4) Elevated troponin Is this a current diagnosis for this admission?: Yes (5) Hyperlipidemia Is this a current diagnosis for this admission?: Yes (6) Rheumatoid arthritis Qualifiers: Laterality: unspecified laterality Is this a current diagnosis for this admission?: Yes (7) Cigarette nicotine dependence Qualifiers: Substance use status: uncomplicated Qualified Code(s): F17.210 - Nicotine dependence, cigarettes, uncomplicated Is this a current diagnosis for this admission?: Yes - Plan Summary Summary: 03/30/2020 The patient is stable this morning. No significant changes from yesterday. The plan is still the same as laid out in her discharge summary. Prescriptions were sent to her pharmacy yesterday so they should be ready for pickup today. She will be seeing Dr. Aaron in 1 week as opposed to 3 to 4 weeks. I also reminded her to follow-up with her primary care provider. We did discuss her tobacco use again today. She is adamant about stopping sm oking. This will be a plus in the long run. She is also unaware that she has a subtle murmur. I explained that as an outpatient they should consider following this up at least initially to assess if it is relevant or not. It was a soft murmur but she still could have some pulmonary hypertension considering her COPD. - Time Time Spent with patient: 15-24 minutes Smoking Cessation Education: 3 to 10 minutes Medications reviewed and adjusted accordingly: Yes Anticipated Discharge Disposition: Home with Home Health Anticipated Discharge Timeframe: within 24 hours
[2020-03-30] MEDS: NICOTINE 14 MG/24 HR PATCH.TD24 TD SCH (09:32)
[2020-03-30 12:22] VITALS: BP 111/64
== END 2020-03-30 15:08 | disposition home health service (06) | DRG 193 ==
LOC: ER 20:41 → EH 03-23 00:01 → 3N 03-23 02:17 → 5 03-26 18:54
PROVIDERS: ADMIT Internal Medicine; ATTEND Hospitalist
DX: J18.9 Pneumonia, unspecified organism (principal); J96.01 Acute respiratory failure with hypoxia; J44.1 Chronic obstructive pulmonary disease with (acute) exacerbation; E78.5 Hyperlipidemia, unspecified; M06.9 Rheumatoid arthritis, unspecified; R94.31 Abnormal electrocardiogram [ECG] [EKG]; F17.210 Nicotine dependence, cigarettes, uncomplicated; Z20.828 Contact with and (suspected) exposure to other viral communicable diseases; Z79.890 Hormone replacement therapy; Z79.891 Long term (current) use of opiate analgesic; Z79.899 Other long term (current) drug therapy
CPT/HCPCS: 36415; 36600; 71045; 71275; 80048; 80053; 80061; 81001; 82550; 82553; 82728; 82803; 83036; 83735; 83880; 84100; 84439; 84443; 84484; 85025; 85027; 85379; 85610; 86140; 87040; 87635; 87804; 93005; 93010; 94640; 94660; 94667; 94668; 94761; 94799; 96365; 96375; 99285; C9803; J0696; J1100; J1650; J2060; J2270; J3490; J7030; J7060; J8540

== ENCOUNTER → 2020-05-04 | Outpatient (CLI) | payer MEDICARE, BC ==
--- NOTE | 2020-05-04 12:52 | RADIOLOGY REPORT (SQ) ---
EXAM DESCRIPTION: CT CHEST WITHOUT IMAGES COMPLETED DATE/TIME: 05/04/2020 10:32 am REASON FOR STUDY: (J84.89)OTHER SPECIFIED INTERSTITIAL PULMONARY DISEASES J84.89 OTHER SPECIFIED IN TERSTITIAL PULMONARY DISEASES COMPARISON: 03/23/2020 TECHNIQUE: CT scan performed of the chest without intravenous contrast. Images reviewed with lung, soft tissue and bone windows. Reconstructed coronal and sagittal MPR images reviewed. All images st ored on PACS. All CT scanners at this facility use dose modulation, iterative reconstruction, and/or weight based d osing when appropriate to reduce radiation dose to as low as reasonably achievable (ALARA). [facility]: Dose Right [facility]: CareDose [facility]: Dose Right [facility]: Teradose 4D [facility]: [employer] RADIATION DOSE: CT Rad equipment meets quality standard of care and radiation dose reduction techniq ues were employed. CTDIvol: 5.9 mGy. DLP: 226 mGy-cm. mGy. LIMITATIONS: No technical limitations. FINDINGS: LUNGS AND PLEURA: Persistent patchy peripheral infiltrates. This could represent asymmetr ic edema. Atelectasis or atypical viral pneumonia. Overall there has been moderate improvement from prior exam. HILAR AND MEDIASTINAL STRUCTURES: No identified masses or abnormal nodes. No obvious aneurysm. HEART AND VASCULAR STRUCTURES: No aneurysm. No pericardial effusion. UPPER ABDOMEN: No significant findings. Limited exam. THYROID AND OTHER SOFT TISSUES: No masses. No adenopathy. BONES: No significant finding. HARDWARE: None in the chest. OTHER: No other significant findings. IMPRESSION: Persistent bilateral ground-glass opacity suspicious for atypical or viral pneumonia. T here has been improvement when compared to prior study. TECHNICAL DOCUMENTATION: JOB ID: [id number] Quality ID # [id number]: Final reports with documentation of one or more dose reduction techniques (e.g., Au tomated exposure control, adjustment of the mA and/or kV according to patient size, use of iterative reconstruction technique) 2010 [employer]- All Rights Reserved Reading location - IP/workstation name: [email or web address]
== END ==
LOC: RAD 10:23
PROVIDERS: ATTEND Internal Medicine Pulmonary Disease
DX: J84.89 Other specified interstitial pulmonary diseases (principal)
CPT/HCPCS: 71250

== ENCOUNTER → 2020-06-28 | Outpatient (CLI) | payer MEDICARE, BC ==
--- NOTE | 2020-06-28 18:02 | EKG REPORT ---
SEVERITY:- BORDERLINE ECG - SINUS RHYTHM PROBABLE LEFT ATRIAL ABNORMALITY : Confirmed by: Jone Giron MD 28-Jun-2020 18:01:09
== END ==
LOC: OD 11:35
PROVIDERS: ATTEND Pain Medicine Interventional Pain Medicine
DX: Z51.81 Encounter for therapeutic drug level monitoring (principal); Z79.891 Long term (current) use of opiate analgesic
CPT/HCPCS: 93005; 93010